=== PATIENT | female | born 1940 | race Caucasian/White ===

== ENCOUNTER 2018-03-02 10:54 | Outpatient (CLI) | payer MEDICARE, SELFPAY ==
--- NOTE | 2018-03-02 11:53 | DI.RAD_ITS ---
SYMPTOMS/DIAGNOSIS: LUMBAGO, M54.5, PERSISTENT LEFT MID-BACK PAIN THORACOLUMBAR SPINE: AP and lateral supine views were performed centered at the thoracolumbar junction. There is a mild biconvex scoliosis. There are severe degenerative disc changes, greatest at T11-12 and the lower lumbar levels. Findings appear to have worsened somewhat when compared with a chest CT of August,. There are prominent endplate osteophytes, greatest in the lumbar levels. Schmorl's nodes are seen at multiple levels. IMPRESSION: Severe degenerative changes of the lower thoracic and lumbar spine , as well as scoliosis.
== END 2018-03-02 11:14 ==
PROVIDERS: PCP Internal Medicine; Visit Provider Internal Medicine
DX: M54.5 Low back pain (principal); M51.35 Other intervertebral disc degeneration, thoracolumbar region
CPT/HCPCS: 72080

== ENCOUNTER 2018-08-24 15:08 | Outpatient (REF) | payer MEDICARE, SELFPAY ==
[2018-08-24 21:10] LABS: ALT 42 U/L (12-78); Anion Gap 11.7 mmol/L (3-11); BUN 9 mg/dL (7-18); CO2 26.3 mmol/L (21.0-32.0); CREATININE 0.85 mg/dL (0.55-1.02); Calcium 8.5 mg/dL (8.5-10.1); Chloride 103 mmol/L (98-107); Glucose 146 mg/dL (70-100); LDL CHOLESTEROL 89 mg/dL (<100); Potassium 3.7 mmol/L (3.5-5.1); Sodium 141 mmol/L (136-145); TSH 4.56 uIU/mL (0.358-3.74)
== END 2018-08-24 15:28 ==
LOC: NCHCN 15:08
PROVIDERS: PCP Internal Medicine; Visit Provider Internal Medicine
DX: I10 Essential (primary) hypertension (principal); I65.21 Occlusion and stenosis of right carotid artery; D12.6 Benign neoplasm of colon, unspecified
CPT/HCPCS: 80048; 83721; 84443; 84460

== ENCOUNTER 2018-08-31 11:28 | Outpatient (REF) | payer MEDICARE, SELFPAY ==
[2018-08-31 20:28] LABS: FREE T4 1.16 ng/dL (0.76-1.46); Glucose 129 mg/dL (70-100); TSH 5.78 uIU/mL (0.358-3.74)
[2018-08-31 21:01] LABS: Hemoglobin A1C 5.5 % (4.5-6.2)
== END 2018-08-31 11:48 ==
LOC: NCHCN 11:28
PROVIDERS: PCP Internal Medicine; Visit Provider Internal Medicine
DX: R73.09 Other abnormal glucose (principal); E04.2 Nontoxic multinodular goiter
CPT/HCPCS: 82947; 83036; 84439; 84443

== ENCOUNTER 2018-09-21 01:16 | Outpatient (REF) | payer MEDICARE, SELFPAY ==
--- NOTE | 2018-09-21 12:15 | DI.MAMMO_ITS ---
SYMPTOMS/DIAGNOSIS: SCREENING, HIGH RISK DUE TO FAMILY HISTORY MAMMOGRAM: Mammograms were interpreted according to the usual protocol including computer analysis with CAD system, tomosynthesis and C view imaging. The breasts are of moderate density with fairly symmetrical distribution of fibroglandular tissue. There are a number of well-circumscribed masses of each breast, no interval change in appearance in comparison with examinations including August 2017. No new mass or clumped microcalcification is identified. CONCLUSION: No specific evidence of malignancy at this time. Routine screening examinations are suggested at yearly intervals due to the family history of breast carcinoma. Category 1, breast density category B. MQSA ASSESSMENT OF FINDINGS: Negative. Category 1. Patient will receive a letter notifying them of these results. BI-RADS category B. There are scattered areas of fibroglandular density.
--- NOTE | 2018-09-21 13:01 | DI.US_ITS ---
SYMPTOMS/DIAGNOSIS: F/U CAROTID STENOSIS, I65.29 BILATERAL DUPLEX CAROTID ULTRASOUND: Duplex evaluation of the carotid circulation was performed according to the usual protocol. There is moderate visible atheromatous plaque in the carotid bifurcations and carotid bulbs bilaterally. Flow velocities on the left are within normal limits in the common internal and external carotid arteries. On the right, there is normal flow velocity in common carotid artery. Flow velocity elevation in proximal right internal carotid artery with maximal flow velocity of 226 cm per second is consistent with 50-60% luminal diameter stenosis at this site. There is bilateral antegrade vertebral flow. CONCLUSION: Findings consistent with a stenosis of 50-60% of the luminal diameter of the proximal right internal carotid artery. Flow velocity elevation extends into the mid right ICA.
== END 2018-09-21 01:36 ==
LOC: DI 01:16
PROVIDERS: PCP Internal Medicine; Visit Provider Internal Medicine
DX: I65.21 Occlusion and stenosis of right carotid artery (principal); Z12.31 Encounter for screening mammogram for malignant neoplasm of breast; Z80.3 Family history of malignant neoplasm of breast
CPT/HCPCS: 77063; 77067; 93880

== ENCOUNTER 2019-02-20 15:04 | Outpatient (REF) | payer MEDICARE, SELFPAY ==
[2019-02-20 20:07] LABS: FREE T4 1.39 ng/dL (0.76-1.46); TSH 0.24 uIU/mL (0.36-3.74)
== END 2019-02-20 15:24 ==
LOC: NCHCN 15:04
PROVIDERS: PCP Internal Medicine; Visit Provider Internal Medicine
DX: E04.2 Nontoxic multinodular goiter (principal); I65.21 Occlusion and stenosis of right carotid artery; I73.9 Peripheral vascular disease, unspecified; D12.6 Benign neoplasm of colon, unspecified
CPT/HCPCS: 84439; 84443

== ENCOUNTER 2019-12-13 16:16 | Outpatient (REF) | payer MEDICARE, SELFPAY ==
[2019-12-13 20:34] LABS: HGB 14.6 g/dL (11.2-15.7); MCH 36.7 pg (27.0-33.0); MCHC 34.8 % (32.0-36.0); MCV 105.5 fL (80-95); MPV 11.3 fL (8.0-11.0); Platelet Count 183 10^3/uL (130-400); RBC 3.98 10^6/uL (3.93-5.22); RDW-SD 47.1 fL
[2019-12-13 21:10] LABS: ALT 35 U/L (14-59); Anion Gap 6.7 mmol/L (3-11); BUN 9 mg/dL (7-18); CO2 28.3 mmol/L (21.0-32.0); CREATININE 0.75 mg/dL (0.55-1.02); Calcium 8.6 mg/dL (8.5-10.1); Chloride 103 mmol/L (98-107); Glucose 105 mg/dL (74-106); LDL CHOLESTEROL 95 mg/dL (<100); Potassium 3.9 mmol/L (3.5-5.1); Sodium 138 mmol/L (136-145); TSH 2.48 uIU/mL (0.36-3.74)
== END 2019-12-13 16:36 ==
LOC: LBN 16:16
PROVIDERS: PCP Internal Medicine; Visit Provider Internal Medicine
DX: I10 Essential (primary) hypertension (principal); E89.0 Postprocedural hypothyroidism; R73.09 Other abnormal glucose
CPT/HCPCS: 80048; 83721; 85027; 84443; 84460

== ENCOUNTER 2019-12-15 15:03 | Outpatient (REF) | payer MEDICARE, SELFPAY ==
[2019-12-15 21:50] LABS: Folate 9.8 ng/mL (8.6-20.0); Vitamin B12 141 pg/mL (193-986)
[2019-12-20 10:21] LABS: Methylmalonic Acid 0.26 nmol/mL (<=0.40)
== END 2019-12-15 15:23 ==
LOC: NCHCN 15:03
PROVIDERS: PCP Internal Medicine; Visit Provider Internal Medicine
DX: R71.8 Other abnormality of red blood cells (principal)
CPT/HCPCS: 80186; 82607; 82746

== ENCOUNTER 2020-01-01 00:37 | Outpatient (CLI) | payer MEDICARE, SELFPAY ==
--- NOTE | 2020-01-01 | DI.MAMMO_ITS ---
EXAM: MG MAMMO SCREENING CLINICAL HISTORY: SCREENING, [facility],Z00.00 TECHNIQUE: Mammograms were interpreted according to the usual protocol including computer analysis w [employer] system, tomosynthesis and C-view imaging. COMPARISON: FINDINGS: The breasts are of moderate density with fairly symmetrical distribution of fibroglandular tissue. M ultiple focal areas of asymmetric density are seen bilaterally, however the findings appear unchanged comparison with multiple previous examinations including August 2018. No new mass or clumped microcal cification is seen. IMPRESSION: No specific evidence of malignancy at this time. Routine screening examinations are suggested at yea rly intervals due to the family history of breast carcinoma. BI-RADS Category 1 - Negative Breast Density - Category B - Scattered areas of fibroglandular density
== END 2020-01-01 00:57 ==
PROVIDERS: PCP Internal Medicine; Visit Provider Internal Medicine
DX: Z12.31 Encounter for screening mammogram for malignant neoplasm of breast (principal); Z00.00 Encounter for general adult medical examination without abnormal findings
CPT/HCPCS: 77063; 77067

== ENCOUNTER 2020-05-31 18:51 | Outpatient (REF) | payer MEDICARE, SELFPAY ==
[2020-06-03 12:51] LABS: COVID-19 RT-PCR UVMMC Result Negative (Negative)
== END 2020-05-31 18:52 | disposition home or self-care (01) ==
LOC: NCHCN 18:51
PROVIDERS: PCP Internal Medicine; Visit Provider Internal Medicine
DX: Z20.822 Contact with and (suspected) exposure to COVID-19 (principal)
CPT/HCPCS: U0003

== ENCOUNTER 2021-04-10 18:56 | Outpatient (REF) | payer MEDICARE, SELFPAY ==
[2021-04-10 19:20] LABS: HCT 41.5 % (36.0-46.0); HGB 14.3 g/dL (11.2-15.7); MCH 35.9 pg (27.0-33.0); MCHC 34.5 % (32.0-36.0); MCV 104.3 fL (80-95); MPV 11.5 fL (8.0-11.0); Platelet Count 185 10^3/uL (130-400); RBC 3.98 10^6/uL (3.93-5.22); RDW 12.2 % (11.7-14.6); RDW-SD 47.1 fL; WBC 5.76 10^3/uL (4.4-10.8)
[2021-04-10 19:44] LABS: Anion Gap 10.9 mmol/L (3-11); BUN 12 mg/dL (7-18); CO2 26.1 mmol/L (21.0-32.0); CREATININE 0.8 mg/dL (0.55-1.02); Calcium 8.6 mg/dL (8.5-10.1); Chloride 103 mmol/L (98-107); Glucose 123 mg/dL (74-106); Potassium 3.7 mmol/L (3.5-5.1); Sodium 140 mmol/L (136-145); TSH 3.64 uIU/mL (0.36-3.74)
== END 2021-04-10 18:57 | disposition home or self-care (01) ==
LOC: NCHCN 18:56
PROVIDERS: PCP Internal Medicine; Visit Provider Internal Medicine
DX: E89.0 Postprocedural hypothyroidism (principal); I10 Essential (primary) hypertension; K58.9 Irritable bowel syndrome, unspecified
CPT/HCPCS: 80048; 85027; 84443

== ENCOUNTER 2021-05-15 00:58 | Outpatient (CLI) | payer MEDICARE, SELFPAY ==
--- NOTE | 2021-05-15 | DI.US_ITS ---
Exam(s) US CAROTID EXAM: US CAROTID CLINICAL HISTORY: BILAT CAROTID STENOSIS,I65.23. TECHNIQUE: Ultrasound carotids performed using grayscale, color-flow, and spectral Doppler imaging. COMPARISON: US US carotid from 09/21/2018 FINDINGS: RIGHT CAROTID ARTERY: Plaque: There is calcific plaque seen in the carotid bulb and proximal and mid internal carotid arter ies. Velocity elevation: See below. LEFT CAROTID ARTERY: Plaque: Calcific plaque is seen in the carotid bulb, common carotid artery and proximal internal lawrence tid artery. Velocity elevation: None. VERTEBRAL ARTERIES: Antegrade flow. Measurements: R Bulb: 266.1cm/s PS / 39cm/s ED R CCA: 74.6cm/s PS / 11.6cm/s ED R ECA: 153.5cm/s PS / 14.7cm/s ED R ICA Prox: 374.8cm/s PS /69.4cm/s ED R ICA Mid: 298.5cm/s PS / 48.6cm/s ED R ICA Distal: No flow is detected. R Vert: 55.9cm/s PS / 10.3cm/s ED R SVR: 5.02 R DVR: 5.98 L Bulb: 98.3cm/s PS /15.4cm/s ED L CCA: 90cm/s PS / 17.4cm/s ED L ECA: 137.2cm/s PS /9.1cm/s ED L ICA Prox:79.3cm/s PS / 13.2cm/s ED L ICA Mid: 91.7cm/sPS / 18.2cm/s ED L ICA Distal: 104.1cm/s PS / 24.8cm/s ED L Vert: 44cm/s PS / 8.1cm/s ED L SVR: 1.16 L DVR: 1.43 IMPRESSION: 1. No evidence of hemodynamically significant stenosis on the left. 2. Flow was not detected in the distal right ICA. Findings are suspicious for total occlusion. Sign ificant velocity elevation is seen in the proximal mid ICA consistent with greater than 70 percent oc clusion. Criteria for Carotid Stenosis: Normal: ICA PSV <125 cm/s no plaque or intimal thickening is visible. <50% stenosis: ICA PSV <125 cm/s and plaque or intimal thickening is visible. 50-69% stenosis: ICA PSV is 125-250 cm/s and plaque is visible. >70% stenosis to near occlusion: ICA PSV >250 cm/s with visible plaque and luminal narrowing. DATA REPOSITORY:
--- NOTE | 2021-05-15 13:00 | DI.MAMMO_ITS ---
Exam(s) MAMMO SCREENING EXAM: MAMMO SCREENING CLINICAL HISTORY: SCREENING, [facility], Z00.00 TECHNIQUE: Bilateral full field digital CC and MLO mammographic images were obtained with 3D tomosyn thesis and utilizing computer aided detection (CAD). COMPARISON: Available for comparison. FINDINGS: There is patient motion artifact on the right MLO view which should be repeated. Masses/Architectural Distortion: Stable bilateral breast nodules are present. Microcalcifications: No suspicious pleomorphic-type are seen. Skin Thickening/Nipple Retraction: None. IMPRESSION: 1. No significant interval change with no specific features of malignancy noted. 2. A repeat right MLO view due to patient motion artifact should be obtained. BI-RADS Category 0 - Assessment Incomplete: Need additional imaging evaluation Breast Density - Category B - Scattered areas of fibroglandular density Breast density category C or D implies that the patient has dense breast tissue. Dense breast tissue is very common and is not abnormal but dense breast tissue can make it harder to find cancer on a ma mmogram. Also, dense breast tissue may increase their breast cancer risk. This information about the result of the mammogram report was provided to the patient to raise their awareness. Use this report when you speak with the patient about their risks for breast cancer, which includes their family hist ory. At that time, you may recommend for more screening tests (Ultrasound or MRI) as they might be us eful based on their risk. A negative radiographic report should not delay biopsy if a dominant or clinically suspicious mass is present. Up to ten percent of cancers are not identified on mammography. A negative report may reinforce clinical impression. Adenosis and dense breasts may obscure an underlying neoplasm. False positive reports average 6 to 10%. Patient will receive a letter notifying them of these results.
== END 2021-05-15 01:18 ==
PROVIDERS: PCP Internal Medicine; Visit Provider Internal Medicine
DX: Z12.31 Encounter for screening mammogram for malignant neoplasm of breast (principal); R92.8 Other abnormal and inconclusive findings on diagnostic imaging of breast; I65.21 Occlusion and stenosis of right carotid artery
CPT/HCPCS: 77063; 77067; 93880

== ENCOUNTER 2021-05-15 14:57 | Outpatient (CLI) | payer MEDICARE, SELFPAY ==
--- NOTE | 2021-05-15 | DI.DEXA_ITS ---
Exam(s) XR DEXA BONE DENSITY W/WO PATO EXAM: XR DEXA BONE DENSITY W/WO PATO CLINICAL HISTORY: SCREENING FOR OSTEOPOROSIS IN POSTMENOPAUSAL WOMAN, Z78.0 TECHNIQUE: COMPARISON: No exams were available for comparison FINDINGS: Lateral Spine Image: Unremarkable. No compression deformities identified. Left hip: Total T-Score: -1.3 Total Z-Score: 0.7 T- and Z-scores: Findings consistent with osteopenia. Lumbar Spine: Total T-Score: 1.2 Total Z-Score: 3.8 T- and Z-scores: Within normal limits. IMPRESSION: No evidence of osteoporosis.
== END 2021-05-15 15:17 ==
PROVIDERS: PCP Internal Medicine; Visit Provider Internal Medicine Gastroenterology
DX: Z78.0 Asymptomatic menopausal state (principal); Z13.820 Encounter for screening for osteoporosis; M85.88 Other specified disorders of bone density and structure, other site
CPT/HCPCS: 77080

== ENCOUNTER 2021-05-23 02:26 | Outpatient (CLI) | payer MEDICARE, SELFPAY ==
--- NOTE | 2021-05-23 | DI.MAMMO_ITS ---
Exam(s) MAMMO SCREEN CALL BACK UNI EXAM: MAMMO SCREEN CALL BACK UNI CLINICAL HISTORY: REPEAT VIEW FOR MOTION,F/U 05/15 TECHNIQUE: Right MLO view including computer analysis with CAD system, tomosynthesis and C-view imag ing. COMPARISON: [facility] MAMMO SCREENING from 05/15/2021 FINDINGS: Patient return for repeat imaging due to motion on the initial view. Stable nodules are seen in the upper and lower portions of the right breast. The breasts are composed of scattered fibroglandular densities, Breast Density category B. No suspicious masses or suspicious microcalcifications are seen. No skin thickening or abnormal axillary lymph nodes are seen. There has been no significant change from prior exams. IMPRESSION: BI-RADS Cat 2 - Benign Findings Yearly screening mammography is recommended. Breast Density - Category B, scattered fibroglandular densities. A negative radiographic report should not delay biopsy if a dominant or clinically suspicious mass is present. Up to ten percent of cancers are not identified on mammography. A negative report may reinforce clinical impression. Adenosis and dense breasts may obscure an underlying neoplasm. False positive reports average 6 to 10%. Patient will receive a letter notifying them of these results.
== END 2021-05-23 02:46 ==
PROVIDERS: PCP Internal Medicine; Visit Provider Internal Medicine
DX: Z12.31 Encounter for screening mammogram for malignant neoplasm of breast (principal); R92.8 Other abnormal and inconclusive findings on diagnostic imaging of breast; N64.59 Other signs and symptoms in breast
CPT/HCPCS: 77063; 77067

== ENCOUNTER 2021-12-24 15:17 | Outpatient (REF) | payer MEDICARE, SELFPAY ==
[2021-12-24 20:55] LABS: Anion Gap 7.7 mmol/L (3-11); BUN 8 mg/dL (7-18); CO2 28.3 mmol/L (21.0-32.0); CREATININE 0.8 mg/dL (0.55-1.02); Calcium 8.8 mg/dL (8.5-10.1); Calculated LDL 67 mg/dL (<100); Chloride 104 mmol/L (98-107); Cholesterol 154 mg/dL (<200); Glucose 128 mg/dL (74-106); HDL Cholesterol 60 mg/dL (40-60); Potassium 3.6 mmol/L (3.5-5.1); Sodium 140 mmol/L (136-145); Triglyceride 139 mg/dL (<150)
== END 2021-12-24 15:18 | disposition home or self-care (01) ==
LOC: NCHCN 15:17
PROVIDERS: PCP Internal Medicine; Visit Provider Internal Medicine
DX: E89.0 Postprocedural hypothyroidism (principal); I10 Essential (primary) hypertension; E78.5 Hyperlipidemia, unspecified; I65.21 Occlusion and stenosis of right carotid artery
CPT/HCPCS: 80048; 80061; 84443

== ENCOUNTER 2022-08-13 09:50 | Outpatient (CLI) | payer MEDICARE, SELFPAY ==
--- NOTE | 2022-08-13 | DI.RAD_ITS ---
Exam(s) XR KNEE LT 3V AP,LAT,MARJORIE EXAM: XR KNEE LT 3V AP,LAT,MARJORIE CLINICAL HISTORY: LEFT KNEE JOINT PAIN M25.562. TECHNIQUE: 2D digital imaging was performed of the left knee. Three images were obtained. AP, late ral and PA tunnel views were obtained. COMPARISON: No exams were available for comparison FINDINGS: BONES: No acute fracture is present. No bony destructive lesion is seen. JOINTS: The knee is normally aligned. There is a small joint effusion. There are small spurs of the posterior patella. There is chondrocalcinosis seen in the femoral tibial joint. SOFT TISSUE: Atherosclerosis is present. IMPRESSION: 1. Mild degenerative changes of the knee. 2. Small joint effusion. 3. 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 DATA REPOSITORY: RADIATION DOSE DELIVERED:
== END 2022-08-13 10:10 ==
LOC: DI 09:50
PROVIDERS: PCP Internal Medicine; Visit Provider Nurse Practitioner Family
DX: M17.12 Unilateral primary osteoarthritis, left knee (principal)
CPT/HCPCS: 73562

== ENCOUNTER 2022-08-17 16:53 | Outpatient (REF) | payer MEDICARE, SELFPAY ==
[2022-08-17 19:11] LABS: Iron 122 ug/dL (50-170)
[2022-08-17 19:13] LABS: Alkaline Phosphatase 110 U/L (46-116); Calcium 8.7 mg/dL (8.5-10.1); Magnesium 1.9 mg/dL (1.8-2.4); PHOSPHORUS 4.6 mg/dL (2.6-4.7)
[2022-08-18 17:59] LABS: Parathyroid Hormone,Intact 58 pg/mL (19-88)
[2022-08-19 09:19] LABS: Transferrin 188 mg/dL (201-352)
== END 2022-08-17 16:54 | disposition home or self-care (01) ==
LOC: NCHCN 16:53
PROVIDERS: PCP Internal Medicine; Visit Provider Nurse Practitioner Family
DX: M11.20 Other chondrocalcinosis, unspecified site (principal)
CPT/HCPCS: 82310; 83540; 83735; 83970; 84075; 84100; 84466

== ENCOUNTER 2022-08-22 16:19 | Inpatient (IN) | payer MEDICARE, SELFPAY ==
[2022-08-22 16:38] VITALS: BP 182/78; PULSE 73; RESP 18; TEMP 36.5; O2SAT 99
--- NOTE | 2022-08-22 18:00 | DI.CT_ITS ---
Exam(s) CT ABDOMEN PELVIS W EXAM: CT ABDOMEN PELVIS W CLINICAL HISTORY: abd pain. TECHNIQUE: Imaging Protocol: Axial computed tomography images with coronal and sagittal reformatted images were created and reviewed CONTRAST MATERIAL: Intravenous: Omnipaque-350 100cc Oral: None COMPARISON: No exams were available for comparison FINDINGS: VISUALIZED LUNG BASES: No nodules nor pleural effusions evident. ABDOMEN: LIVER: There is a E subcapsular lesion in the right hepatic lobe measuring approximately 4 x 3 cm. P robably hemangioma. No other focal hepatic findings nor dilatation of intrahepatic ducts. No dilate d intrahepatic ducts. GALLBLADDER/BILIARY: Gallbladder is not seen and presumed to be surgically absent. CBD diameter is s lightly enlarged commensurate with patient's post cholecystectomy status and advanced age. CBD diame ter at the pancreatic head level is 12 mm. There is a finding measuring 2.5 cm wide by 1.5 cm AP by 2.2 cm cephalocaudal behind the distal stoma ch. May represent an enlarged lymph node. PANCREAS: No evidence of pancreatic mass nor dilatation of the pancreatic duct. SPLEEN: Spleen size upper normal. Multiple subtle hypodensities are noted in the spleen, probably he mangiomas. The splenic and portal veins are patent. ADRENALS: There are no significant adrenal masses. KIDNEYS:No cysts evident. No solid renal masses. No calculi nor hydronephrosis.. ABDOMINAL AORTA: Calcified but not enlarged. Iliac arteries are also calcified but not enlarged. LYMPH NODES:There is no retroperitoneal nor paraaortic adenopathy. ABDOMINAL WALL: No evidence of significant anterior abdominal wall nor inguinal hernia. GI: The colon is dilated and fluid-filled. Also fluid-filled mid and distal small bowel loops are no jonas. Diameter of the cecum is 7 cm. Diameter of the ascending colon is 6 cm. Diameter of the trans verse colon is 3.5 cm. Diameter of the descending-left colon is 3.5 cm. There is sigmoid diverticul osis but no obvious acute diverticulitis. Small amount of free fluid. Small bowel loops are also fluid-filled distally and upper normal diameters. There is diverted ticke t low cysts in the sigmoid and rectum sigmoid but no evidence of obvious diverticulitis focus. PELVIS: GI: No evidence of appendicitis.No evidence of sigmoid diverticulitis. LYMPH NODES: There is no intrapelvic nor inguinal adenopathy. REPRODUCTIVE: Uterus size normal. Finding in the high left adnexa is probably slightly prominent ova ry. The right ovary is not identified as a separate structure URINARY BLADDER: No calculi nor obvious masses evident OSSEOUS: No compression fractures. Multilevel chronic degenerative disc disease. Most evident at T1 1-T12 level. Also Schmorl's node invagination at superior endplate of T11. Also moderate degenerati ve anterolisthesis L4 upon L5. IMPRESSION: 1. Main finding here is dilatation of most of the colon from the cecum to the sigmoid which is fluid- filled with the exception of some fecal material in the sigmoid where there are multiple diverticula but no obvious acute diverticulitis. There also fluid filled mid-distal small bowel loops. Findings are most probably related to enteritis pattern. These fluid-filled large bowel loops are more fluid -filled than they are edematous. There is, however, small amount of free fluid. There is no free ai r. 2. Abdominal aorta is atherosclerotic. There is no occlusion of the superior mesenteric artery nor o f the inferior mesenteric artery. There are no large me entering mesenteric vessels. 3. There is a subcapsular hypodense lesion in the liver which exhibits enhancement characteristics pr obably that of a cavernous hemangioma. Measures approximately 4 x 3 cm. 4. Gallbladder appears to be surgically absent. There is mild dilatation of biliary tree. RADIATION DOSE DELIVERED: 1,069.36mGy.cm Total DLP DATA REPOSITORY: All CT scans at this facility are submitted to the National Radiology Data Registry (NRDR) Dose Index Registry (DIR) with the [employer] ([employer]). RADIATION OPTIMIZATION: All CT scans at this facility use at least one of these dose optimization te chniques: automated exposure control; mA and/or kV adjustment per patient size (includes targeted exa ms where dose is matched to clinical indication); or iterative reconstruction.
[2022-08-22] MEDS: ACETAMINOPHEN 1,000 MG/100 ML BTL 400 MG IVPB (18:02)
[2022-08-22 18:03] LABS: Lactate 2.3 mmol/L (0.6-1.4)
[2022-08-22] MEDS: Normal Saline 1,000 ML 1000 ML IV (18:03)
[2022-08-22] MEDS: Prochlorperazine 10 MG/2 ML VIAL IVP (18:03)
[2022-08-22 18:06] LABS: Abs Immature Grans 0.05 10^3/uL (0.0-0.06); Absolute Lymphocyte Count 0.83 10^3/uL (1.2-3.4); Absolute Monocyte Count 1.43 10^3/uL (0.1-0.8); Basophils % 0.2; HCT 44.9 % (36.0-46.0); HGB 16.1 g/dL (11.2-15.7); Immature Grans % 0.3; Lymphocytes % 5.2; MCH 36.6 pg (27.0-33.0); MCHC 35.9 % (32.0-36.0); MCV 102 fL (80-95); Monocytes % 8.9; Neutrophils % 85.4; Platelet Count 240 10^3/uL (130-400); RDW 12.5 % (11.7-14.6); RDW-SD 47.4 fL; WBC 16.04 10^3/uL (4.4-10.8)
[2022-08-22 18:07] LABS: Absolute Basophil Count 0.03 10^3/uL (0.0-0.2)
[2022-08-22 18:17] LABS: ALT 26 U/L (14-59); AST 29 U/L (15-37); Albumin 3.9 g/dL (3.4-5.0); Alkaline Phosphatase 146 U/L (46-116); Anion Gap 7.1 mmol/L (3-11); BUN 15 mg/dL (7-18); Bilirubin, Total 1.4 mg/dL (0.2-1.0); CO2 28.9 mmol/L (21.0-32.0); CREATININE 0.9 mg/dL (0.55-1.02); Calcium 9.7 mg/dL (8.5-10.1); Chloride 99 mmol/L (98-107); Estimated GFR 65.03 (mL/min/1.73m2); Glucose 146 mg/dL (74-106); Potassium 3.4 mmol/L (3.5-5.1); Sodium 135 mmol/L (136-145); Total Protein 6.7 g/dL (6.4-8.2)
[2022-08-22] MEDS: HYDROmorphone 2 MG/ML SYR 0.5 MG IVP (18:20)
[2022-08-22] MEDS: Omnipaque 350 MG/ML 100 ML BTL IJ (18:20)
[2022-08-22] MEDS: Normal Saline - Diluent 50 ML VIAL IJ (18:23)
--- NOTE | 2022-08-22 19:01 | ED.GENADUL_ITS ---
Discharge Plan Disposition Patient Disposition: Admit to [facility] Condition: Stable Discharge Details Clinical Impression: Small bowel obstruction Admit Date/Time: 08/22/22 19:15 Admit Provider: Mercedez Burks Attending Provider: Mercedez Bruks Primary Care Provider: Ravindra Ordoñez ED Provider: Adele Gonzalez Discharge Data Discharge Date/Time-TO BE ENTERED AT DEPARTURE: 08/22/22 19:51 Medical Decision Making Patient presents with significant abdominal pain nausea vomiting distention and reports of constipation x3 days not responsive to laxatives. Will obtain IV access check CBC CMP lactic acid differentials most likely include small bowel obstruction versus mesenteric ischemia. Will give 1 L of normal saline antiemetic Compazine 10 mg IV push and acetaminophen 1000 mg IV piggyback. Will obtain CT of the abdomen and pelvis. Pain continues to be significant after receiving medications so we will give Dilaudid 0.[address] findings are discussed with radiologist. Then further discussed with Dr. Burks general surgery who will admit for small bowel obstruction. NG tube to be placed. Lab Data Lab results reviewed: Yes I reviewed the patient's lab results. Labs: Laboratory Results - last 24 hr WBC 16.04 10^3/uL (4.4-10.8) H 08/22/22 17:50 RBC 4.40 10^6/uL (3.93-5.22) 08/22/22 17:50 Hgb 16.1 g/dL (11.2-15.7) H 08/22/22 17:50 Hct 44.9 % (36.0-46.0) 08/22/22 17:50 MCV 102 fL (80-95) H 08/22/22 17:50 MCH 36.6 pg (27.0-33.0) H 08/22/22 17:50 MCHC 35.9 % (32.0-36.0) 08/22/22 17:50 RDW 12.5 % (11.7-14.6) 08/22/22 17:50 Plt Count 240 10^3/uL (130-400) 08/22/22 17:50 MPV 11.0 fL (8.0-11.0) 08/22/22 17:50 Immature Gran % 0.3 08/22/22 17:50 Neutrophils % 85.4 08/22/22 17:50 Lymphocytes % 5.2 08/22/22 17:50 Monocytes % 8.9 08/22/22 17:50 Eosinophils % 0.0 08/22/22 17:50 Basophils % 0.2 08/22/22 17:50 Nucleated RBC % 0.0 % (0.0-0.3) 08/22/22 17:50 Absolute Neutrophils 13.70 10^3/uL (1.2-6.7) H 08/22/22 17:50 Absolute Lymphocytes 0.83 10^3/uL (1.2-3.4) L 08/22/22 17:50 Absolute Monocytes 1.43 10^3/uL (0.1-0.8) H 08/22/22 17:50 Absolute Eosinophils 0.00 10^3/uL (0.0-0.7) 08/22/22 17:50 Absolute Basophils 0.03 10^3/uL (0.0-0.2) 08/22/22 17:50 VBG Lactate 2.3 mmol/L (0.6-1.4) H* 08/22/22 17:50 Sodium 135 mmol/L (136-145) L 08/22/22 17:50 Potassium 3.4 mmol/L (3.5-5.1) L 08/22/22 17:50 Chloride 99 mmol/L (98-107) 08/22/22 17:50 Carbon Dioxide 28.9 mmol/L (21.0-32.0) 08/22/22 17:50 Anion Gap 7.1 mmol/L (3-11) 08/22/22 17:50 BUN 15 mg/dL (7-18) 08/22/22 17:50 Creatinine 0.9 mg/dL (0.55-1.02) 08/22/22 17:50 Est GFR (CKD-EPI 2020) 65.03 (mL/min/1.73m2) 08/22/22 17:50 Glucose 146 mg/dL (74-106) H 08/22/22 17:50 Calcium 9.7 mg/dL (8.5-10.1) 08/22/22 17:50 Magnesium 3.0 mg/dL (1.8-2.4) H 08/22/22 17:50 Total Bilirubin 1.4 mg/dL (0.2-1.0) H 08/22/22 17:50 AST 29 U/L (15-37) 08/22/22 17:50 ALT 26 U/L (14-59) 08/22/22 17:50 Alkaline Phosphatase 146 U/L (46-116) H 08/22/22 17:50 Troponin I Cancelled 08/22/22 20:42 Total Protein 6.7 g/dL (6.4-8.2) 08/22/22 17:50 Albumin 3.9 g/dL (3.4-5.0) 08/22/22 17:50 HPI General Mode of arrival: ambulatory . Date/Time Provider Initiated Documentation: 08/22/22 16:22 . Limitations to Documentation: no limitations . Information obtained by: patient . HPI Narrative: 81-year-old female patient who has been reporting constipation over the past several days has been taken vosh-vsk-vsodhxl bowel medication including oral and rectal Dulcolax with no results. She presents with significant reports of abdominal pain nausea vomiting and abdominal distention. She denies any history of bowel obstruction. She denies any fever or chills. She has not anticoagulated, does take daily aspirin. Related Data Home Medications Medication Instructions Recorded Confirmed Anti-Diarrhea 2 mg tablet 2 mg PO PRN PRN 03/20/13 03/27/13 (loperamide) Cardizem CD 120 mg 240 mg PO DAILY 03/20/13 08/22/22 capsule,extended release (diltiazem HCl) ESSENTIAL One Daily (multivitamin) 1 ea PO DAILY 03/20/13 08/22/22 Prilosec OTC 20 mg tablet,delayed 20 mg PO DAILY 03/20/13 03/27/13 release (omeprazole magnesium) aspirin 325 mg tablet 325 mg PO DAILY 03/20/13 08/22/22 atenolol 50 mg tablet 50 mg PO DAILY 03/20/13 08/22/22 calcium carbonate 500 mg calcium 500 mg PO DAILY 03/20/13 08/22/22 (1,250 mg) chewable tablet levothyroxine 125 mcg tablet 125 mcg PO DAILY 03/20/13 08/22/22 lorazepam 1 mg tablet 1 mg PO PRN PRN 03/20/13 03/27/13 Allergies Allergy/AdvReac Type Severity Reaction Status Date / Time Vurylvx-RRZ-DpL Reductase Allergy Unknown Unverified 03/14/14 14:26 Inhibitor [Gaeetrw-Tmg-Hyi Reductase Inhibitor] Sulfa (Sulfonamide Allergy Unknown Unverified 03/14/14 14:26 Antibiotics) General Stated Complaint: Abd Prob PHOEBE: 3 Review of Systems All systems reviewed & are unremarkable except as noted in HPI and below PFSH All Active Problems (Updated 08/22/22 @ 19:23 by Mercedez Burks DO) Hypothyroid (Chronic) HTN (hypertension) (Chronic) Chronic GERD (Acute) Bowel obstruction (Acute) Surgical History (Updated 08/22/22 @ 19:23 by Mercedez Burks DO) S/P cholecystectomy Social History Smoking/Tobacco Use Status: Former Tobacco Use Smoking risk assessment performed?: Yes Drug use: Never Substance use type: does not use Exam Const General: cooperative and no acute distress Nutritional Appearance: average body habitus Orientation: alert, awake and oriented x3 HENMT Head: normal to inspection, normocephalic and atraumatic Mouth: moist mucous membranes abnormal (dry) Chest Chest: normal inspection of the chest Resp Effort & Inspection: normal respiratory effort Cardio Rate: regular rate Rhythm: regular rhythm GI Inspection: distended Palpation: soft, not firm, no guarding, not rigid and tender Percussion: tympanic to percussion Auscultation: hyperactive bowel sounds Skin General skin exam: no rashes or lesions noted Neuro General: patient alert, patient awake and patient oriented x3 Cognition: normal cognition Course Vital Signs Vital signs: Vital Signs Temperature 36.5 C 08/22/22 16:38 Pulse 73 08/22/22 16:38 Respiratory Rate 18 08/22/22 16:38 Blood Pressure 182/78 H 08/22/22 16:38 Pulse Oximetry 99 08/22/22 16:38 Temperature 36.5 C 08/22/22 16:38 Temperature Source Temporal Artery Scan 08/22/22 16:38 Pulse 73 08/22/22 16:38 Respiratory Rate 18 08/22/22 16:38 Respiratory Effort Normal, Non-Labored 08/22/22 16:50 Blood Pressure 182/78 H 08/22/22 16:38 Blood Pressure Position Supine 08/22/22 16:38 Pulse Oximetry 99 08/22/22 16:38 Oxygen Delivery Method Room Air 08/22/22 16:38 Oxygen Flow Rate 0 08/22/22 16:38 Lab/Test Results Lab/Test Results: Laboratory Tests Range/Units 08/22/22 08/22/22 08/22/22 17:42 17:50 17:50 WBC (4.4-10.8) 10^3/uL 16.04 H RBC (3.93-5.22) 10^6/uL 4.40 Hgb (11.2-15.7) g/dL 16.1 H Hct (36.0-46.0) % 44.9 MCV (80-95) fL 102 H MCH (27.0-33.0) pg 36.6 H MCHC (32.0-36.0) % 35.9 RDW (11.7-14.6) % 12.5 Plt Count (130-400) 10^3/uL 240 MPV (8.0-11.0) fL 11.0 Immature Gran % 0.3 Neutrophils % 85.4 Lymphocytes % 5.2 Monocytes % 8.9 Eosinophils % 0.0 Basophils % 0.2 Nucleated RBC % (0.0-0.3) % 0.0 Absolute Neutrophils (1.2-6.7) 10^3/uL 13.70 H Absolute Lymphocytes (1.2-3.4) 10^3/uL 0.83 L Absolute Monocytes (0.1-0.8) 10^3/uL 1.43 H Absolute Eosinophils (0.0-0.7) 10^3/uL 0.00 Absolute Basophils (0.0-0.2) 10^3/uL 0.03 VBG Lactate (0.6-1.4) mmol/L Sodium (136-145) mmol/L 135 L Potassium (3.5-5.1) mmol/L 3.4 L Chloride (98-107) mmol/L 99 Carbon Dioxide (21.0-32.0) mmol/L 28.9 Anion Gap (3-11) mmol/L 7.1 BUN (7-18) mg/dL 15 Creatinine (0.55-1.02) mg/dL 0.9 Est GFR (CKD-EPI 2020) (mL/min/1.73m2) 65.03 Glucose (74-106) mg/dL 146 H Calcium (8.5-10.1) mg/dL 9.7 Magnesium (1.8-2.4) mg/dL 3.0 H Total Bilirubin (0.2-1.0) mg/dL 1.4 H AST (15-37) U/L 29 ALT (14-59) U/L 26 Alkaline Phosphatase (46-116) U/L 146 H Troponin I Cancelled Total Protein (6.4-8.2) g/dL 6.7 Albumin (3.4-5.0) g/dL 3.9 Range/Units 08/22/22 08/22/22 17:50 20:42 WBC (4.4-10.8) 10^3/uL RBC (3.93-5.22) 10^6/uL Hgb (11.2-15.7) g/dL Hct (36.0-46.0) % MCV (80-95) fL MCH (27.0-33.0) pg MCHC (32.0-36.0) % RDW (11.7-14.6) % Plt Count (130-400) 10^3/uL MPV (8.0-11.0) fL Immature Gran % Neutrophils % Lymphocytes % Monocytes % Eosinophils % Basophils % Nucleated RBC % (0.0-0.3) % Absolute Neutrophils (1.2-6.7) 10^3/uL Absolute Lymphocytes (1.2-3.4) 10^3/uL Absolute Monocytes (0.1-0.8) 10^3/uL Absolute Eosinophils (0.0-0.7) 10^3/uL Absolute Basophils (0.0-0.2) 10^3/uL VBG Lactate (0.6-1.4) mmol/L 2.3 H* Sodium (136-145) mmol/L Potassium (3.5-5.1) mmol/L Chloride (98-107) mmol/L Carbon Dioxide (21.0-32.0) mmol/L Anion Gap (3-11) mmol/L BUN (7-18) mg/dL Creatinine (0.55-1.02) mg/dL Est GFR (CKD-EPI 2020) (mL/min/1.73m2) Glucose (74-106) mg/dL Calcium (8.5-10.1) mg/dL Magnesium (1.8-2.4) mg/dL Total Bilirubin (0.2-1.0) mg/dL AST (15-37) U/L ALT (14-59) U/L Alkaline Phosphatase (46-116) U/L Troponin I Cancelled Total Protein (6.4-8.2) g/dL Albumin (3.4-5.0) g/dL
--- NOTE | 2022-08-22 19:22 | HPE_ITS ---
Date of service: 08/22/22 Time of Service: 19:22 Assessment and Plan Assessment and plan (1) Obstipation: Status: Acute Assessment and plan: - At this time it appears that she has an impaction with a significant amount of liquid stool behind it. She does not have any peritoneal signs or signs of an acute abdomen. There is no signs of any abdominal emergency on CT or any infections. -It is not clear why someone who has chronic diarrhea has simply developed an impaction. She has been taking Dulcolax at home without results. -Night we will do a Dulcolax suppository. If this does not have any results after 2 hours and we will proceed to enema. We will plan on doing stool cultures and C. difficile. -Continue supportive care including fluids and antiemetics if there is a think she is quite dehydrated still from vomiting. Repeat labs in a.m. Further recommendations to follow (2) Chronic GERD: Status: Acute (3) HTN (hypertension): Status: Chronic (4) Hypothyroid: Status: Chronic (5) S/P cholecystectomy: (6) Diverticula of colon: Status: Acute History of Present Illness Narrative: Patient presented to [facility] ER this evening complaining of abdominal pain. Patient states she normally has problems with chronic diarrhea move her bowels anywhere from 2-4 times a day and it is soft and liquid. For the past 5 days she has had no bowel movement. She has been taking a Dulcolax daily since Wednesday and has had no results. This evening she started vomiting, and vomited 3 or 4 times. She feels very bloated/distended and is complaining of diffuse crampy abdominal pain. She has had no fever or chills. She is 8 breakfast this morning but has not been able to eat anything else throughout the day. She notes she is very thirsty right now but she does not really have much of an appetite for food. She has never had anything like this before. Again she mostly runs on the diarrheal side. She has lost about 20 pounds in the past year without trying. Her bowels have generally remained unchanged except for the last week. She has not noted any blood in her stools. There is no family history of colon cancer. She notes she just does not have much of an appetite anymore. She denies any pain or difficulty swallowing. She admits to early satiety. She has chronic reflux and is on Prilosec but also on aspirin daily. She does have a history diverticula. She has had no left lower quadrant pain, fever or chills. She did have a CT this evening which did show a large amount of impacted stool in the rectosigmoid area and diverticula but no diverticulitis and then a significant amount of dilated colon with liquid stool behind it. But there is no signs of obstruction or infection. She had a colonoscopy about a year ago with Dr. Sandoval. I do not have access to the report. Patient states she had polyps and he wants repeat CE again in 3 years time and diverticula. She denies ever having a heart attack or stroke. She is not diabetic. She is not a smoker and has no history of asthma or COPD or sleep apnea. Since she arrived in the hospital she has not had any urge to vomit. She just feels gassy and bloated and distended. She notes she did have a very very small bowel movement this a.m. She did have to strain quite a bit to have this bowel movement. She has had nothing since then and is not passing gas. Review of Systems All systems reviewed & are unremarkable except as noted in HPI and below PFSH All Active Problems (Updated 08/23/22 @ 16:04 by Mercedez Burks DO) Obstipation (Acute) Dental infection (Acute) Transaminitis (Acute) Diverticula of colon (Acute) Fecal impaction of colon (Acute) Hypothyroid (Chronic) HTN (hypertension) (Chronic) Chronic GERD (Acute) Surgical History (Updated 08/22/22 @ 19:23 by Mercedez Burks DO) S/P cholecystectomy Social History Smoking/Tobacco Use Status: Former Tobacco Use Smoking risk assessment performed?: Yes Drug use: Never Substance use type: does not use Meds Allergies and Home Medications Allergies Allergy/AdvReac Type Severity Reaction Status Date / Time Xkyeyno-VAB-GfB Reductase Allergy Unknown Unverified 03/14/14 14:26 Inhibitor [Zedpirq-Oed-Vwe Reductase Inhibitor] Sulfa (Sulfonamide Allergy Unknown Unverified 03/14/14 14:26 Antibiotics) Home Medications Medication Instructions Recorded Confirmed Type Anti-Diarrhea 2 mg tablet 2 mg PO PRN PRN 03/20/13 03/27/13 History (loperamide) Cardizem CD 120 mg 240 mg PO DAILY 03/20/13 08/22/22 History capsule,extended release (diltiazem HCl) ESSENTIAL One Daily (multivitamin) 1 ea PO DAILY 03/20/13 08/22/22 History aspirin 325 mg tablet 325 mg PO DAILY 03/20/13 08/22/22 History atenolol 50 mg tablet 50 mg PO DAILY 03/20/13 08/22/22 History calcium carbonate 500 mg calcium 500 mg PO DAILY 03/20/13 08/22/22 History (1,250 mg) chewable tablet levothyroxine 125 mcg tablet 125 mcg PO Q OTHER DAY 03/20/13 08/23/22 History lorazepam 1 mg tablet 1 mg PO PRN PRN 03/20/13 03/27/13 History levothyroxine 137 mcg tablet 137 mcg PO Q OTHER DAY 08/23/22 08/23/22 History Exam Const General: cooperative, healthy appearing, comfortable, well developed and well groomed Nutritional Appearance: average body habitus Orientation: alert, awake and oriented x3 Other: PHYSICAL EXAM GENERAL APPEARANCE: Alert, healthy appearance, oriented, x 3,? in no acute distress HYDRATION: Well hydrated HEAD, EYES, EARS, NECK, THROAT: Head is normocephalic, pupils equal, round, reactive to light and accommodation, ocular movement intact, sclera clear and no jaundice. ?Dentition intact. LUNGS: normal respiration/normal chest excursion. ?Clear to auscultation bilaterally. ?No wheeze. ?HEART: Regular rate and rhythm. no murmurs EXTREMITY: No edema or cyanosis.? no leg pain, redness, swelling.? ABDOMEN: soft and non-tender to palpation.? Hyperactive bowel sounds.? She has some mild distention and diffuse abdominal tenderness. She does not have any peritoneal signs or signs of acute abdomen Results Labs 08/23/22 05:50 08/23/22 05:50 Labs: Laboratory Results - last 24 hr 08/22/22 08/22/22 08/22/22 17:42 17:50 17:50 WBC 16.04 H RBC 4.40 Hgb 16.1 H Hct 44.9 MCV 102 H MCH 36.6 H MCHC 35.9 RDW 12.5 Plt Count 240 MPV 11.0 Immature Gran % 0.3 Neutrophils % 85.4 Lymphocytes % 5.2 Monocytes % 8.9 Eosinophils % 0.0 Basophils % 0.2 Nucleated RBC % 0.0 Absolute Neutrophils 13.70 H Absolute Lymphocytes 0.83 L Absolute Monocytes 1.43 H Absolute Eosinophils 0.00 Absolute Basophils 0.03 VBG Lactate Sodium 135 L Potassium 3.4 L Chloride 99 Carbon Dioxide 28.9 Anion Gap 7.1 BUN 15 Creatinine 0.9 Est GFR (CKD-EPI 2020) 65.03 Glucose 146 H Calcium 9.7 Magnesium 3.0 H Total Bilirubin 1.4 H AST 29 ALT 26 Alkaline Phosphatase 146 H Troponin I Cancelled Total Protein 6.7 Albumin 3.9 08/22/22 08/22/22 17:50 20:42 WBC RBC Hgb Hct MCV MCH MCHC RDW Plt Count MPV Immature Gran % Neutrophils % Lymphocytes % Monocytes % Eosinophils % Basophils % Nucleated RBC % Absolute Neutrophils Absolute Lymphocytes Absolute Monocytes Absolute Eosinophils Absolute Basophils VBG Lactate 2.3 H* Sodium Potassium Chloride Carbon Dioxide Anion Gap BUN Creatinine Est GFR (CKD-EPI 2020) Glucose Calcium Magnesium Total Bilirubin AST ALT Alkaline Phosphatase Troponin I Cancelled Total Protein Albumin Last Vital Signs Temp 36.5 C 08/22/22 16:38 Pulse 73 08/22/22 16:38 Resp 18 08/22/22 16:38 BP 182/78 H 08/22/22 16:38 Pulse Ox 99 08/22/22 16:38 Time Spent Time spent with Patient: 40-54 minutes Time was spent: preparing to see the patient(eg.review tests), obtaining and/or reviewing separately otained hiistory, ordering medications,tests, procedures, referring, communicating with other health healthcare science specialist, indepentently interpreting results, counseling the patient and care coordination
--- NOTE | 2022-08-22 19:26 | DI.VRAD_ITS ---
PROCEDURE INFORMATION: Exam: CT Abdomen And Pelvis With Contrast Exam date and time: 08/22/2022 6:21 PM Age: 81 years old Clinical indication: Other: Abd pain TECHNIQUE: Imaging protocol: Computed tomography of the abdomen and pelvis with contrast. Contrast material: 350; Contrast volume: 100 ml; Contrast route: INTRAVENOUS (IV); COMPARISON: CT CHEST WITH CONTRAST 09/03/2016 12:59 PM FINDINGS: Lungs: Lung bases clear. Diaphragm: 2.5 cm x 3.8 cm hiatal hernia. Liver: 2.7 cm x 3.6 cm x 3.5 cm heterogeneous but largely hypoattenuating lesion in the medial left hepatic segment with discontinuous nodular enhancement characteristic of a hemangioma. Gallbladder and bile ducts: Gallbladder not identified, suspected to be surgically absent. Correlation with surgical history recommended. Mild intrahepatic biliary dilatation. Common bile duct dilated to 11 mm, probably a postsurgical finding although correlation with surgical history is recommended. Pancreas: Normal appearing pancreas. Spleen: Numerous small indeterminate hypoattenuating splenic lesions, not well characterized but likely cysts and/or hemangiomas. Adrenal glands: Normal appearing adrenal glands. Kidneys and ureters: Normal appearing kidneys. No hydronephrosis. No obstructing ureteral stones. Stomach and bowel: No oral contrast. Stomach partially decompressed. No small bowel dilatation to suggest obstruction. Moderate fluid-filled distention of the cecum, ascending colon, transverse colon, and descending colon suggesting diarrhea or impending diarrhea. Normal appearing fecal material present in the sigmoid colon. Rectum well evacuated. Scattered colonic diverticula through the descending and sigmoid segments but no evidence of diverticulitis. No colonic wall thickening to suggest colitis. Appendix: Normal appendix. Intraperitoneal space: No free air. Trace fluid extending along the left paracolic gutter, nonspecific. Vasculature: Normal caliber abdominal aorta. Atherosclerotic calcification throughout the abdominal aorta and at the splanchnic artery origins. Lymph nodes: No pathologically enlarged mesenteric, retroperitoneal, or pelvic sidewall lymph nodes. Urinary bladder: Urinary bladder partially collapsed but grossly unremarkable, as seen. Reproductive: Normal sized uterus and ovaries. 1.5 cm x 2.6 cm left ovarian cyst. Bones/joints: Spinal degenerative change with discogenic degeneration, vacuum disc deformities, Schmorl's nodes, osteophytes, and facet arthrosis. Grade 1 anterolisthesis of L4 on L5. Mild S-shaped curvature through the visualized portion of the spine. Soft tissues: Small fat containing right inguinal region hernia, probably a femoral hernia given its location lateral to the pubic tubercle. Atrophy of the right upper quadrant abdominal wall musculature. IMPRESSION: Moderate fluid-filled distention of the cecum, ascending colon, transverse colon, and descending colon suggesting diarrhea or impending diarrhea, etiology not demonstrated. Trace adjacent fluid in the left paracolic gutter, nonspecific. No convincing evidence of diverticulitis or colitis. Dictated and Authenticated by: Roger Webb MD. Ordering:MERCY Angulo MD
[2022-08-22 19:42] VITALS: BP 168/74; PULSE 71; RESP 18; O2SAT 97
[2022-08-22 20:07] VITALS: PULSE 65
[2022-08-22 20:14] VITALS: BP 151/70; PULSE 65
[2022-08-22] MEDS: Lactated Ringers 1,000 ML 75 ML IV (20:14)
[2022-08-22] MEDS: Metoprolol 5 MG/5 ML VIAL IVP (20:14)
[2022-08-22] MEDS: MORPHine 2 MG/ML SYR IVP (20:31)
[2022-08-22 20:35] VITALS: BP 151/70; PULSE 65; RESP 16; TEMP 36.7; O2SAT 96
[2022-08-22] MEDS: Bisacodyl 10 MG SUPP PR (21:22)
[2022-08-22 23:33] VITALS: BP 147/65; PULSE 66; RESP 20; TEMP 38; O2SAT 93
[2022-08-23] MEDS: MORPHine 2 MG/ML SYR IVP ×2 (00:19→08:00)
[2022-08-23 01:07] VITALS: PULSE 66
[2022-08-23] MEDS: ACETAMINOPHEN 1,000 MG/100 ML BTL 400 MG IVPB ×2 (02:46→10:55)
[2022-08-23 02:47] VITALS: BP 132/80; PULSE 75
--- NOTE | 2022-08-23 02:52 | NUR.NOTE ---
upon admission patient given a suppository to attempt to dislodge obstruction, after 2 hours no bm. then patient was given a fleets enema, still no sucess. this was discussed with charge nurse and this rn was told to wait for now and that no ng tube was needed at this time and there was no order to alert doctor if there was no success on these 2 attempts. wctm. patients pain being controlled.
[2022-08-23 03:00] VITALS: BP 136/75; PULSE 75
[2022-08-23 06:19] LABS: Abs Immature Grans 0.08 10^3/uL (0.0-0.06); Absolute Basophil Count 0.03 10^3/uL (0.0-0.2); Absolute Eosinophil Count 0.01 10^3/uL (0.0-0.7); Absolute Lymphocyte Count 0.85 10^3/uL (1.2-3.4); Absolute Monocyte Count 1.44 10^3/uL (0.1-0.8); Absolute Neutrophil Count 10.26 10^3/uL (1.2-6.7); Basophils % 0.2; Eosinophils % 0.1; HGB 12.8 g/dL (11.2-15.7); Immature Grans % 0.6; Lymphocytes % 6.7; MCH 36.3 pg (27.0-33.0); MCHC 34.6 % (32.0-36.0); MCV 105 fL (80-95); MPV 11.6 fL (8.0-11.0); Monocytes % 11.4; Platelet Count 155 10^3/uL (130-400); RBC 3.53 10^6/uL (3.93-5.22); RDW 13.2 % (11.7-14.6); WBC 12.67 10^3/uL (4.4-10.8)
[2022-08-23 06:43] LABS: ALT 82 U/L (14-59); AST 103 U/L (15-37); Albumin 2.8 g/dL (3.4-5.0); Alkaline Phosphatase 151 U/L (46-116); BUN 16 mg/dL (7-18); Bilirubin, Total 1.4 mg/dL (0.2-1.0); C-Reactive Protein 4.04 mg/dL (0.0-0.3); CREATININE 0.8 mg/dL (0.55-1.02); Calcium 7.9 mg/dL (8.5-10.1); Chloride 105 mmol/L (98-107); Glucose 144 mg/dL (74-106); Lipase 11 U/L (16-77); Magnesium 2.5 mg/dL (1.8-2.4); Potassium 3.4 mmol/L (3.5-5.1); Sodium 142 mmol/L (136-145); Total Protein 5.2 g/dL (6.4-8.2)
[2022-08-23 07:23] VITALS: PULSE 69
[2022-08-23 07:38] VITALS: BP 113/67; PULSE 73; RESP 16; TEMP 36.8; O2SAT 96
[2022-08-23] MEDS: Metoprolol 5 MG/5 ML VIAL IVP (07:59)
[2022-08-23] MEDS: Normal Saline Flush 10 ML SYR IVP (08:01)
[2022-08-23] MEDS: Pantoprazole 40 MG VIAL IVP (08:01)
[2022-08-23 11:26] LABS: C Diff PCR Negative (Negative)
[2022-08-23 12:14] LABS: Calculated LDL 25 mg/dL (<100); Cholesterol 103 mg/dL (<200); HDL Cholesterol 53 mg/dL (40-60); Triglyceride 129 mg/dL (<150)
[2022-08-23 12:33] LABS: GGT 307 U/L (5-55)
[2022-08-23 13:03] LABS: Procalcitonin 0.2 ng/mL
[2022-08-23 13:05] VITALS: PULSE 65
--- NOTE | 2022-08-23 13:19 | DSE_ITS ---
Date of service: 08/23/22 Time of Service: 13:19 DS: Diagnosis Discharge Diagnosis (1) Chronic GERD: Status: Acute (2) HTN (hypertension): Status: Chronic (3) Hypothyroid: Status: Chronic (4) S/P cholecystectomy: (5) Fecal impaction of colon: Status: Acute Asessment and Plan: resolved pt normaly has diarrhea daily miralax need records from [facility]. ce about a year ago (6) Diverticula of colon: Status: Acute (7) Transaminitis: Status: Acute Asessment and Plan: -denies hx of liver issues -hold asa/nsaid's over weekend nl liver CT 08/22 (8) Dental infection: Status: Acute Asessment and Plan: pt had dental infections in may/june in [facility] and was on an abx and unknown pain killer Discharge Plan Disposition Patient Disposition: Home Condition: Improving Discharge Details Reason For Visit: Bowel Obstruction/Obstipation Admit Date/Time: 08/22/22 19:15 Admit Provider: Mercedez Burks Attending Provider: Mercedez Burks Primary Care Provider: Ravindra Ordoñez Hospital Course Hospital Course: see addendum Home Meds and New Rx's Prescriptions: Continued levothyroxine 125 MCG tablet 125 mcg PO Q OTHER DAY Rx Instructions: alternates with 137 mcg tab diltiazem HCl [Cardizem CD] 120 MG capsule,extended release 24hr 240 mg PO DAILY levothyroxine 137 mcg tablet 137 mcg PO Q OTHER DAY Patient Comments: Take 1 tablet by mouth every other day as directed Take 1 tab by mouth alternating with Levothyroxine 125mcg every other day Held multivitamin [ESSENTIAL One Daily] 1 EACH tablet 1 ea PO DAILY Hold Instructions: Resume on 08/28/22. aspirin 325 MG tablet 325 mg PO DAILY Hold Instructions: Resume on 08/28/22. loperamide [Anti-Diarrhea] 2 MG tablet 2 mg PO PRN PRN Hold Instructions: Resume on 08/28/22. Patient Comments: not taking calcium carbonate 500 MG tablet,chewable 500 mg PO DAILY Hold Instructions: Resume on 08/28/22. lorazepam 1 MG tablet 1 mg PO PRN PRN Hold Instructions: Resume on 08/28/22. Patient Comments: not taking atenolol 50 MG tablet 50 mg PO DAILY Hold Instructions: Resume on 08/28/22. Patient Comments: not taking Discontinued omeprazole magnesium [Prilosec OTC] 20 MG tablet,delayed release (DR/EC) 20 mg PO DAILY Patient Comments: not taking Discharge Instructions Additional Instructions: -No driving for 24 hrs -arrive 30 mins to mammogram appointment at [facility] to have blood re-checked at oupt lab. Orders have been placed. -Follow-up with Dr. Burks [facility] the [facility]. Across [address] from the main entrance at the hospital. [phone] -soft diet: No beef/pork raw vegetables x1 -week. Cooked vegetables are fine -no straining to move bowels -take a dose of Miralax dialy -It is ok to shower/bathe as normal -Soft bland diet until - see below -You may find that your appetite is smaller. Eat 3-6 small meals throughout the day. It is important to drink lots of water after surgery, 6-10 glasses a day. -do not take aspirin/tylenol/NSAID's, any supplements or vitamins, or drink alcohol, until follow-up appointment. -We do want you up walking, at least 5-6 times per day. This is very important to prevent pneumonia and blood clots. You can climb stairs, take them slowly. -You may find that you are very tired after being in the hospital- this is normal. -please do not smoke for a minimum of 72 hours after surgery. Discharge Instructions: Eating a Soft, Barnes Diet You have been prescribed a soft, bland diet. This reduces the amount of work your digestive tract has to do. It also reduces the chance that your digestive tract will be irritated by the food you eat. A soft, bland diet is prescribed for people with digestive problems. This is different from a soft diet that is prescribed for people with issues chewing and swallowing. The diet you have been prescribed consists of foods that are tender, mildly seasoned, and easy to digest. While on this diet, don't eat fried or spicy foods,?or raw fruits and vegetables. Also don't drink alcohol. General guidelines * Eat in a calm, relaxed atmosphere. How you eat may be as important as what you eat. Don?t bautista while eating. Chew your food slowly and thoroughly, and swallow slowly. * Eat small meals often throughout the day. But don?t eat?3?hours before lying down. * Think about raising the head of your bed 6 or 9 inches. Wedge pillows let you sleep on an incline and may be helpful. * Don't eat any foods that cause discomfort. * Don?t use NSAIDs (nonsteroidal anti-inflammatory drugs), such as aspirin and ibuprofen. Also don't take medicine that contain aspirin. NSAIDs can cause ulcers and delay or prevent ulcer healing. * Use antacids as needed. But keep in mind that magnesium-containing antacids may cause diarrhea. * Don't smoke. Foods to eat * Cream of wheat and cream of rice * Cooked white rice * Mashed potatoes and boiled potatoes without skin * Plain pasta and noodles * Plain white crackers (such as no-salt soda crackers) * White bread * Applesauce * Cooked fruits without skins or seeds * Mild juices, such as apple and grape * Bananas * Cooked or mashed vegetables without stems and seeds * Carrots * Summer squash (zucchini, yellow squash) * Winter squash (acorn, butternut, spaghetti squash) * Cottage cheese * Mild hard or soft cheeses * Custard * Yogurt without seeds or nuts * Milk (you may need lactose-free milk) * Ice cream without seeds, nuts, chocolate chips, or toppings * Smooth peanut butter * Eggs * Fish, turkey, chicken, or other lean meat that is not tough or stringy * Tofu Foods to stay away from * Nuts and seeds * Snack foods, such as the following: * Chocolate-containing snacks, candy, pastries, or cakes. * Potato chips (plain, barbecued, or other flavors) * Taco chips or nachos * [place] chips * Popcorn, popcorn cakes, or rice cakes * Crackers with nuts, seeds, or spicy seasonings * Vietnamese fries * Fried or greasy foods * Whole-grain breads, rolls, and crackers * Breads and rolls with nuts, seeds, or bran * Bran and granola cereals * Berries with seeds, such as strawberries, raspberries, and blackberries * Acidic fruits, such as oranges, grapefruits, froilan, limes, and pineapples * Raw vegetables * Mild or hot peppers * Sauerkraut and pickled vegetables * Tomatoes or tomato products, such as tomato paste, tomato sauce, and tomato juice * Barbecue sauce * Spicy or flavored cheeses, such as jalape?o and black pepper cheese * Crunchy peanut butter * Dried cooked beans, such as smith, kidney, or navy beans * The following meats: * Fried or greasy meats * Processed, spicy meats, such as sausage, pagan, ham, and lunch meats * Ribs and other meats with barbecue sauce * Tough or stringy meats, such as corned beef or beef jerky Drinks to Avoid * Alcohol * Coffee and regular teas * Yuri and other drinks with caffeine * Cranberry, orange, pineapple, and grapefruit juice * Lemonade * Vegetable juice * Whole milk, if you are lactose intolerant * Peppermint Stand Alone Forms: Nursing Discharge Form Referrals: Mercedez Burks DO [OSTEOPATHIC DOCTOR] - (Please call Wednesday to make a follow up appointment with Dr. Burks for .) Activity:: no strenuous activity or Equipment/Supplies:: No Equipment Needed Diet:: soft diet DS: Summary Time Spent with Patient providing and/or coordinating discharge services: Greater than 30 minutes Status at Discharge Functional status at discharge: independent ambulation Overall status at discharge: patient is progressing back to baseline Mental Status: mental status grossly normal Speech and Movement: speech and movement normal Mood: congruent mood Affect: normal affect Exam Psych Mental Status: mental status grossly normal Speech and Movement: speech and movement normal Mood: congruent mood Affect: normal affect DS: Data Vitals/I&O Vitals and I&O: Vital Signs Temperature 36.8 C 08/23/22 07:38 Temperature Source Tympanic 08/23/22 07:38 Pulse 73 08/23/22 07:38 Pulse Rhythm Regular 08/23/22 09:53 Respiratory Rate 16 08/23/22 07:38 Respiratory Effort Normal 08/23/22 09:53 Respiratory Depth Normal 08/23/22 09:53 Respiratory Pattern Normal 08/23/22 09:53 Blood Pressure 113/67 08/23/22 07:38 Blood Pressure Position Supine 08/22/22 16:38 Pulse Oximetry 96 08/23/22 07:38 Oxygen Delivery Method Room Air 08/23/22 07:38 Oxygen Flow Rate 0 08/23/22 07:38 Pain Level 2 08/23/22 07:38 Intake & Output 08/22/22 08/23/22 08/23/22 23:59 11:59 23:59 Intake Total 1100 / 1100 100 / 340 240 / 340 Balance 1100 / 1100 100 / 340 240 / 340 Weight 68.039 kg Intake: IV 1100 / 1100 100 / 100 Oral 240 / 240 Other: Urine Appearance Clear Stool Size Large Stool Characteristics Liquid Data Completed and Pending Labs on day of discharge: Labs from last 24 hours 08/23/22 08/23/22 08/23/22 11:00 11:00 11:00 WBC RBC Hgb Hct MCV MCH MCHC RDW Plt Count MPV Immature Gran % Neutrophils % Lymphocytes % Monocytes % Eosinophils % Basophils % Nucleated RBC % Absolute Neutrophils Absolute Lymphocytes Absolute Monocytes Absolute Eosinophils Absolute Basophils VBG Lactate Sodium Potassium Chloride Carbon Dioxide Anion Gap BUN Creatinine Est GFR (CKD-EPI 2020) Glucose Calcium Magnesium Total Bilirubin GGT AST ALT Alkaline Phosphatase Troponin I C-Reactive Protein Total Protein Albumin Triglycerides Total Cholesterol LDL Cholesterol, Calc HDL Cholesterol Lipase Procalcitonin 0.2 Stool Campylobacter PCR Pending Stl C.difficile Tox PCR Stool Salmonella PCR Pending Stool Shigella PCR Pending KYLE Titer Pending KYLE Titer 2 Pending KYEL Titer 3 Pending KYLE Interpretation Pending Hepatitis A IgM Ab Hep Bs Antigen Hep B Core Total Ab Hepatitis C Antibody Shiga Toxin (PCR) Pending 08/23/22 08/23/22 08/23/22 11:00 11:00 10:30 WBC RBC Hgb Hct MCV MCH MCHC RDW Plt Count MPV Immature Gran % Neutrophils % Lymphocytes % Monocytes % Eosinophils % Basophils % Nucleated RBC % Absolute Neutrophils Absolute Lymphocytes Absolute Monocytes Absolute Eosinophils Absolute Basophils VBG Lactate Sodium Potassium Chloride Carbon Dioxide Anion Gap BUN Creatinine Est GFR (CKD-EPI 2020) Glucose Calcium Magnesium Total Bilirubin GGT 307 H AST ALT Alkaline Phosphatase Troponin I C-Reactive Protein Total Protein Albumin Triglycerides 129 Total Cholesterol 103 LDL Cholesterol, Calc 25 HDL Cholesterol 53 Lipase Procalcitonin Stool Campylobacter PCR Stl C.difficile Tox PCR Negative Stool Salmonella PCR Stool Shigella PCR KYLE Titer KYLE Titer 2 KYLE Titer 3 KYLE Interpretation Hepatitis A IgM Ab Pending Hep Bs Antigen Pending Hep B Core Total Ab Pending Hepatitis C Antibody Pending Shiga Toxin (PCR) 08/23/22 08/23/22 08/23/22 05:50 05:50 05:50 WBC 12.67 H RBC 3.53 L Hgb 12.8 D Hct 37.0 MCV 105 H MCH 36.3 H MCHC 34.6 RDW 13.2 Plt Count 155 MPV 11.6 H Immature Gran % 0.6 Neutrophils % 81.0 Lymphocytes % 6.7 Monocytes % 11.4 Eosinophils % 0.1 Basophils % 0.2 Nucleated RBC % 0.0 Absolute Neutrophils 10.26 H Absolute Lymphocytes 0.85 L Absolute Monocytes 1.44 H Absolute Eosinophils 0.01 Absolute Basophils 0.03 VBG Lactate Sodium 142 Potassium 3.4 L Chloride 105 Carbon Dioxide 28.0 Anion Gap 9.0 BUN 16 Creatinine 0.8 Est GFR (CKD-EPI 2020) 74.90 Glucose 144 H Calcium 7.9 L Magnesium Cancelled 2.5 H Total Bilirubin 1.4 H GGT AST 103 H ALT 82 H Alkaline Phosphatase 151 H Troponin I C-Reactive Protein 4.04 H Total Protein 5.2 L Albumin 2.8 L Triglycerides Total Cholesterol LDL Cholesterol, Calc HDL Cholesterol Lipase 11 L Procalcitonin Stool Campylobacter PCR Stl C.difficile Tox PCR Stool Salmonella PCR Stool Shigella PCR KYLE Titer KYLE Titer 2 KYLE Titer 3 KYLE Interpretation Hepatitis A IgM Ab Hep Bs Antigen Hep B Core Total Ab Hepatitis C Antibody Shiga Toxin (PCR) 08/22/22 08/22/22 08/22/22 20:42 17:50 17:50 WBC 16.04 H RBC 4.40 Hgb 16.1 H Hct 44.9 MCV 102 H MCH 36.6 H MCHC 35.9 RDW 12.5 Plt Count 240 MPV 11.0 Immature Gran % 0.3 Neutrophils % 85.4 Lymphocytes % 5.2 Monocytes % 8.9 Eosinophils % 0.0 Basophils % 0.2 Nucleated RBC % 0.0 Absolute Neutrophils 13.70 H Absolute Lymphocytes 0.83 L Absolute Monocytes 1.43 H Absolute Eosinophils 0.00 Absolute Basophils 0.03 VBG Lactate 2.3 H* Sodium Potassium Chloride Carbon Dioxide Anion Gap BUN Creatinine Est GFR (CKD-EPI 2020) Glucose Calcium Magnesium Total Bilirubin GGT AST ALT Alkaline Phosphatase Troponin I Cancelled C-Reactive Protein Total Protein Albumin Triglycerides Total Cholesterol LDL Cholesterol, Calc HDL Cholesterol Lipase Procalcitonin Stool Campylobacter PCR Stl C.difficile Tox PCR Stool Salmonella PCR Stool Shigella PCR KYLE Titer KYLE Titer 2 KYLE Titer 3 KLYE Interpretation Hepatitis A IgM Ab Hep Bs Antigen Hep B Core Total Ab Hepatitis C Antibody Shiga Toxin (PCR) 08/22/22 08/22/22 17:50 17:42 WBC RBC Hgb Hct MCV MCH MCHC RDW Plt Count MPV Immature Gran % Neutrophils % Lymphocytes % Monocytes % Eosinophils % Basophils % Nucleated RBC % Absolute Neutrophils Absolute Lymphocytes Absolute Monocytes Absolute Eosinophils Absolute Basophils VBG Lactate Sodium 135 L Potassium 3.4 L Chloride 99 Carbon Dioxide 28.9 Anion Gap 7.1 BUN 15 Creatinine 0.9 Est GFR (CKD-EPI 2020) 65.03 Glucose 146 H Calcium 9.7 Magnesium 3.0 H Total Bilirubin 1.4 H GGT AST 29 ALT 26 Alkaline Phosphatase 146 H Troponin I Cancelled C-Reactive Protein Total Protein 6.7 Albumin 3.9 Triglycerides Total Cholesterol LDL Cholesterol, Calc HDL Cholesterol Lipase Procalcitonin Stool Campylobacter PCR Stl C.difficile Tox PCR Stool Salmonella PCR Stool Shigella PCR KYLE Titer KYLE Titer 2 KYLE Titer 3 KYLE Interpretation Hepatitis A IgM Ab Hep Bs Antigen Hep B Core Total Ab Hepatitis C Antibody Shiga Toxin (PCR) PFSH All Active Problems (Updated 08/23/22 @ 13:22 by Mercedez Burks DO) Dental infection (Acute) Transaminitis (Acute) Diverticula of colon (Acute) Fecal impaction of colon (Acute) Hypothyroid (Chronic) HTN (hypertension) (Chronic) Chronic GERD (Acute) Surgical History (Updated 08/22/22 @ 19:23 by Mercedez Burks DO) S/P cholecystectomy Social History Smoking/Tobacco Use Status: Former Tobacco Use Smoking risk assessment performed?: Yes Drug use: Never Substance use type: does not use Time Spent with Patient Time Spent with Patient: 45-69 minutes Time was spent: preparing to see the patient(eg.review tests), obtaining and/or reviewing separately otained hiistory, ordering medications,tests, procedures, referring, communicating with other health health care analyst, indepentently interpreting results, counseling the patient and care coordination
[2022-08-23] MEDS: Lactated Ringers 1,000 ML 75 ML IV (13:44)
--- NOTE | 2022-08-23 16:07 | W.PM.PROGNOT ---
Date of Service Date of service: 08/23/22 Time of Service: 13:00 Assessment and Plan Assessment and plan (1) Obstipation: Status: Acute (2) Dental infection: Status: Acute (3) Transaminitis: Status: Acute Assessment and plan: - I have no etiology for the increase in transaminitis. -The patient was recently in [place] for 2 months. We will run a panel for acute hepatitis. She has had no symptoms from this. Liver appears normal on CT from the ER. -We will plan on discharge home and follow-up in clinic on . We will repeat lab work at that time. -We will see if we can get the colonoscopy report from Dr. Sandoval office. -Patient has noted early satiety and explained/unanticipated weight loss. There was an enlarged lymph node near the stomach noted on CT. EGD may be indicated to follow-up as an outpatient. -See discharge instructions. Avoid Tylenol and alcohol and continue on a low-fat diet -MiraLAX daily to prevent constipation I will see her in the clinic afternoon after her mammogram. Blood work was ordered in the computer and she should go to her mammogram appointment 30 minutes related to have repeat labs. (4) Diverticula of colon: Status: Acute (5) Fecal impaction of colon: Status: Acute (6) Hypothyroid: Status: Chronic (7) HTN (hypertension): Status: Chronic (8) Chronic GERD: Status: Acute Subjective Subjective Interval history since last seen: Patient had a large volume of stool overnight. She is feeling much better. She still has some mild bloating and some tenderness along her flanks. She ate lunch and feels good and she wants to go home. She has been up walking around in her room. She denies feeling weak or dizzy. She has no chest pain or shortness of breath. Her labs today did note an increase in her LFTs/transaminases. Patient has had her gallbladder out. She is not a heavy drinker. She denies any recent travel. She was in [place] for May and June. She did have a dental emergency while she was there and took antibiotics and an unknown painkiller. This is was in June. She does not have right upper quadrant pain per se. She is not overtly jaundiced. She is not nauseated. And she would like to go home. She otherwise has had no changes to her diet or daily routine. She has not started on any new supplements. She has not started or made any dietary changes. She has not done any recent traveling outside of the formerly [facility]. Other than when she was in [place] this spring. Exam Const General: cooperative, healthy appearing, comfortable, no acute distress, well developed and well groomed Nutritional Appearance: average body habitus Orientation: alert, awake and oriented x3 Other: L: clear H: r/r/r Abdom-soft. Normal bowel sounds. Minimal diffuse abdominal pain probably related to the distention from last p.m. No tenderness over to the liver. le- no edema Objective Last Vital Signs Temp 36.8 C 08/23/22 07:38 Pulse 65 08/23/22 13:05 Resp 16 08/23/22 07:38 BP 113/67 08/23/22 07:38 Pulse Ox 96 08/23/22 07:38 Laboratory Results - last 24 hr 08/22/22 08/22/22 08/22/22 17:42 17:50 17:50 WBC 16.04 H RBC 4.40 Hgb 16.1 H Hct 44.9 MCV 102 H MCH 36.6 H MCHC 35.9 RDW 12.5 Plt Count 240 MPV 11.0 Immature Gran % 0.3 Neutrophils % 85.4 Lymphocytes % 5.2 Monocytes % 8.9 Eosinophils % 0.0 Basophils % 0.2 Nucleated RBC % 0.0 Absolute Neutrophils 13.70 H Absolute Lymphocytes 0.83 L Absolute Monocytes 1.43 H Absolute Eosinophils 0.00 Absolute Basophils 0.03 VBG Lactate Sodium 135 L Potassium 3.4 L Chloride 99 Carbon Dioxide 28.9 Anion Gap 7.1 BUN 15 Creatinine 0.9 Est GFR (CKD-EPI 2020) 65.03 Glucose 146 H Calcium 9.7 Magnesium 3.0 H Total Bilirubin 1.4 H GGT AST 29 ALT 26 Alkaline Phosphatase 146 H Troponin I Cancelled C-Reactive Protein Total Protein 6.7 Albumin 3.9 Triglycerides Total Cholesterol LDL Cholesterol, Calc HDL Cholesterol Lipase Procalcitonin Stl C.difficile Tox PCR 08/22/22 08/22/22 08/23/22 17:50 20:42 05:50 WBC RBC Hgb Hct MCV MCH MCHC RDW Plt Count MPV Immature Gran % Neutrophils % Lymphocytes % Monocytes % Eosinophils % Basophils % Nucleated RBC % Absolute Neutrophils Absolute Lymphocytes Absolute Monocytes Absolute Eosinophils Absolute Basophils VBG Lactate 2.3 H* Sodium 142 Potassium 3.4 L Chloride 105 Carbon Dioxide 28.0 Anion Gap 9.0 BUN 16 Creatinine 0.8 Est GFR (CKD-EPI 2020) 74.90 Glucose 144 H Calcium 7.9 L Magnesium 2.5 H Total Bilirubin 1.4 H GGT AST 103 H ALT 82 H Alkaline Phosphatase 151 H Troponin I Cancelled C-Reactive Protein 4.04 H Total Protein 5.2 L Albumin 2.8 L Triglycerides Total Cholesterol LDL Cholesterol, Calc HDL Cholesterol Lipase 11 L Procalcitonin Stl C.difficile Tox PCR 08/23/22 08/23/22 08/23/22 05:50 05:50 10:30 WBC 12.67 H RBC 3.53 L Hgb 12.8 D Hct 37.0 MCV 105 H MCH 36.3 H MCHC 34.6 RDW 13.2 Plt Count 155 MPV 11.6 H Immature Gran % 0.6 Neutrophils % 81.0 Lymphocytes % 6.7 Monocytes % 11.4 Eosinophils % 0.1 Basophils % 0.2 Nucleated RBC % 0.0 Absolute Neutrophils 10.26 H Absolute Lymphocytes 0.85 L Absolute Monocytes 1.44 H Absolute Eosinophils 0.01 Absolute Basophils 0.03 VBG Lactate Sodium Potassium Chloride Carbon Dioxide Anion Gap BUN Creatinine Est GFR (CKD-EPI 2020) Glucose Calcium Magnesium Cancelled Total Bilirubin GGT AST ALT Alkaline Phosphatase Troponin I C-Reactive Protein Total Protein Albumin Triglycerides Total Cholesterol LDL Cholesterol, Calc HDL Cholesterol Lipase Procalcitonin Stl C.difficile Tox PCR Negative 08/23/22 08/23/22 11:00 11:00 WBC RBC Hgb Hct MCV MCH MCHC RDW Plt Count MPV Immature Gran % Neutrophils % Lymphocytes % Monocytes % Eosinophils % Basophils % Nucleated RBC % Absolute Neutrophils Absolute Lymphocytes Absolute Monocytes Absolute Eosinophils Absolute Basophils VBG Lactate Sodium Potassium Chloride Carbon Dioxide Anion Gap BUN Creatinine Est GFR (CKD-EPI 2020) Glucose Calcium Magnesium Total Bilirubin GGT 307 H AST ALT Alkaline Phosphatase Troponin I C-Reactive Protein Total Protein Albumin Triglycerides 129 Total Cholesterol 103 LDL Cholesterol, Calc 25 HDL Cholesterol 53 Lipase Procalcitonin 0.2 Stl C.difficile Tox PCR Time Spent with Patient Time Spent with Patient: >50 minutes Time was spent: preparing to see the patient(eg.review tests), obtaining and/or reviewing separately otained hiistory, ordering medications,tests, procedures, referring, communicating with other health director of critical care, indepentently interpreting results, counseling the patient, care coordination and other
[2022-08-24 12:13] LABS: Hepatitis A Antibody IgM Negative (Negative); Hepatitis B Core Antibody Negative (Negative); Hepatitis B surface Ag Negative (Negative); Hepatitis C Ab w Rflx HCV PCR Negative (Negative)
[2022-08-24 12:17] LABS: ANA Interpretation Negative (Negative)
== END 2022-08-23 14:19 | disposition home or self-care (01) | DRG 641 ==
LOC: ER 19:23 → MS 19:51
PROVIDERS: Admitting Provider Surgery; Emergency Provider Nurse Practitioner Acute Care; PCP Internal Medicine; Visit Provider Surgery
DX: E86.0 Dehydration (principal); K56.41 Fecal impaction; K21.9 Gastro-esophageal reflux disease without esophagitis; E03.9 Hypothyroidism, unspecified; I10 Essential (primary) hypertension; K57.30 Diverticulosis of large intestine without perforation or abscess without bleeding; R74.01 Elevation of levels of liver transaminase levels; R11.2 Nausea with vomiting, unspecified
CPT/HCPCS: 36415; 80053; 80061; 83690; 84145; 86704; 86709; 86803; 87340; 87493; 87505; 96361; 96365; 96375; 99222; 99239; 99285; 74177; 82272; 82977; 83605; 83735; 84484; 85025; 86038; 86140; J0131; J0780; J1170; J2270; J3490

== ENCOUNTER 2022-08-27 02:08 | Outpatient (CLI) | payer MEDICARE, SELFPAY ==
--- NOTE | 2022-08-27 | DI.MAMMO_ITS ---
Exam(s) MAMMO SCREENING EXAM: MAMMO SCREENING CLINICAL HISTORY: SCREENING, Z12.39. TECHNIQUE: Bilateral full field digital CC and MLO mammographic images were obtained with 3D tomosyn thesis and utilizing computer aided detection (CAD). COMPARISON: Prior mammograms dating back to 2013 were reviewed, the most recent being April 2021. . FINDINGS: There has been no significant change in the appearance and distribution of the fibroglandular tissue. Stable benign-appearing nodules are again noted in both breasts. There are no new spiculated masses nor malignant appearing microcalcification groups. There is no significant architectural distortion nor skin thickening-retraction. IMPRESSION: Stable benign findings. No radiographic evidence of malignancy. BI-RADS Category 2 - Benign Findings Breast Density - Category B - Scattered areas of fibroglandular density Breast density Category C or D implies that the patient has dense breast tissue. Dense breast tissue can make it harder to find cancer on a mammogram. Dense breast tissue is also associated with an incr eased risk of breast cancer. This information about the result of the mammogram report was provided to the patient to raise their awareness. Use this report when you speak with the patient about their risks for breast cancer, which includes their family history. At that time, you may recommend additional screening tests (Ultrasoun d or MRI) as these tests may add significant information. A negative radiographic report should not delay biopsy if a dominant or clinically suspicious mass is present. Up to ten percent of cancers are not identified on mammography. A negative report may reinforce clinical impression. Adenosis and dense breasts may obscure an underlying neoplasm. False positive reports average 6 to 10%. Patient will receive a letter notifying them of these results.
== END 2022-08-27 02:28 ==
LOC: DI 02:12
PROVIDERS: PCP Internal Medicine; Visit Provider Nurse Practitioner Family
DX: Z12.31 Encounter for screening mammogram for malignant neoplasm of breast (principal)
CPT/HCPCS: 77063; 77067

== ENCOUNTER → 2022-12-31 02:41 | Outpatient (CLI) | payer MEDICARE, SELFPAY ==
--- NOTE | 2022-12-31 15:31 | DI.US_ITS ---
Exam(s) US CAROTID EXAM: US CAROTID CLINICAL HISTORY: RT CAROTID ARTERY STENOSIS I65.21. TECHNIQUE: Ultrasound carotids performed using grayscale, color-flow, and spectral Doppler imaging. COMPARISON: US US CAROTID from 05/15/2021 FINDINGS: CAROTID ARTERIES: On the right side there is plaque again noted at the carotid bulb and proximal right ICA with signifi cantly elevated velocities in the right carotid bulb and proximal and mid right ICA in the neck, with peak systolic velocities of 208 cm/sec, 317 cm/sec, and 259 cm/sec, respectively. Stenosis estimate d at greater than 70 percent. On the left side there is also plaque evident at the carotid bulb and proximal ICA but without signif icant elevated velocities, indicating the amount of stenosis is less than 50 percent. VERTEBRAL ARTERIES: Antegrade flow is demonstrated in both vertebral arteries. Measurements: R Bulb: 208.2cm/s PS / 25.3cm/s ED R CCA: 71.1cm/s PS / 15.4cm/s ED R ECA: 173.9cm/s PS / 7.8cm/s ED R ICA Prox: 317cm/s PS / 52.8cm/s ED R ICA Mid: 259.2cm/s PS / 29.9cm/s ED R ICA Distal: 75.4cm/s PS /11.7cm/s ED R Vert: 52cm/s PS / 9.4cm/s ED R SVR: 4.5 R DVR: 3.4 L Bulb: 96.8cm/s PS / 18.1cm/s ED L CCA: 71.7cm/s PS / 13.8cm/s ED L ECA: 109.7cm/s PS / 16.7cm/s ED L ICA Prox: 83.1cm/s PS / 14.1cm/s ED L ICA Mid: 81.9cm/s PS / 18.9cm/s ED L ICA Distal: 95.1cm/s PS / 22.5cm/s ED L Vert: 59.8cm/s PS / 8cm/s ED L SVR: 1.4 L DVR: 1.3 IMPRESSION: There is significant greater than 70 % stenosis in the right carotid bulb-proximal right ICA. There is less than 50 percent stenosis on the left side. Antegrade flow is demonstrated in both vertebral arteries. Criteria for Carotid Stenosis: Normal: ICA PSV <125 cm/s no plaque or intimal thickening is visible. <50% stenosis: ICA PSV <125 cm/s and plaque or intimal thickening is visible. 50-69% stenosis: ICA PSV is 125-250 cm/s and plaque is visible. >70% stenosis to near occlusion: ICA PSV >250 cm/s with visible plaque and luminal narrowing. DATA REPOSITORY:
== END ==
PROVIDERS: PCP Internal Medicine; Visit Provider Internal Medicine
DX: I65.21 Occlusion and stenosis of right carotid artery (principal)
CPT/HCPCS: 93880

== ENCOUNTER 2023-07-21 17:35 | Observation (INO) | payer MEDICARE, SELFPAY ==
[2023-07-21] VITALS (17 sets, daily range): BP systolic 196–213; BP diastolic 55–68; PULSE 60–78; RESP 18; TEMP 37; O2SAT 88–96
--- NOTE | 2023-07-21 17:45 | DI.CT_ITS ---
Exam(s) CT ABDOMEN PELVIS W EXAM: CT ABDOMEN PELVIS W CLINICAL HISTORY: constipation x 4 days, h/o bowel obstructions. TECHNIQUE: Imaging Protocol: Axial computed tomography images with coronal and sagittal reformatted images were created and reviewed CONTRAST MATERIAL: Intravenous: Omnipaque-350 100cc Oral: None COMPARISON: CT CT ABDOMEN PELVIS W from 08/22/2022 FINDINGS: VISUALIZED LUNG BASES: No nodules nor pleural effusions evident. ABDOMEN: There is no ascites. LIVER: Previously described probable hemangioma in the medial aspect of the right hepatic lobe adjace nt to the inter lobar fissure is again noted and appears unchanged in size, measuring approximately 4 x 3 cm, similar to previous. There are no additional focal findings in the liver. There also no di lated intrahepatic ducts. GALLBLADDER/BILIARY: Gallbladder is again not seen and presumed to be surgically absent. CBD diamete r is again noted to be mildly prominent, unchanged and consistent with the patient's advanced age and post cholecystectomy status. PANCREAS: No evidence of pancreatic mass nor dilatation of the pancreatic duct. SPLEEN: Spleen size is normal. Again noted are multiple small hypodensities in the spleen, similar t o previous. Splenic and portal veins are patent. ADRENALS: There are no significant adrenal masses. KIDNEYS:No cysts evident. No solid renal masses. No calculi nor hydronephrosis.. ABDOMINAL AORTA: Calcified but not enlarged. The common iliac arteries are also calcified but not en larged. LYMPH NODES:There is no retroperitoneal nor paraaortic adenopathy. ABDOMINAL WALL: No evidence of significant anterior abdominal wall nor inguinal hernia. GI: Stomach is fluid-filled and mildly distended. Lower esophagus also fluid-filled and hiatal herni a noted. The entire colon above the level of the sigmoid is fluid-filled and mildly distended, simil ar to previous. Cecal measurement is 6 cm. There also a few fluid-filled upper normal limits diamet er small bowel loops ranging up to 2 cm diameter. There are sigmoid diverticuli but no evidence of o bvious acute diverticulitis. PELVIS: GI: No evidence of appendicitis.No evidence of sigmoid diverticulitis. LYMPH NODES: There is no intrapelvic nor inguinal adenopathy. REPRODUCTIVE: Uterus size is normal. No findings in the right adnexa. In the high left adnexa there is a left ovarian cyst measuring 2.5 by 1.8 cm., similar to previous study. No free fluid in the pe lvis. URINARY BLADDER: No calculi nor obvious masses evident OSSEOUS: No fractures and no significant osseous lesions. Multilevel chronic degenerative disc disease again noted. Degenerative anterolisthesis L4 upon L5 ag ain noted. Modic type sub endplate changes at T11-T12 again noted. IMPRESSION: 1. Fluid-filled and slightly dilated colon from the cecum to the junction of the descending left and sigmoid colon as well as some fluid-filled upper normal limits diameter small bowel loops. Findings most probably consistent with enteritis, somewhat similar to the prior study of 08/22/2022. Less lik oz bowel obstruction. 2. Stable appearance of the probable hemangioma in the liver. 3. Gallbladder not seen and presumed to be surgically absent. 4. Other findings as above. RADIATION DOSE DELIVERED: 831.43mGy.cm Total DLP DATA REPOSITORY: All CT scans at this facility are submitted to the National Radiology Data Registry (NRDR) Dose Index Registry (DIR) with the [employer] (A[employer]). RADIATION OPTIMIZATION: All CT scans at this facility use at least one of these dose optimization te chniques: automated exposure control; mA and/or kV adjustment per patient size (includes targeted exa ms where dose is matched to clinical indication); or iterative reconstruction.
--- NOTE | 2023-07-21 17:45 | RT.EKG_ITS ---
APPROVED REPORT Exam: Resting ECG Reason for Exam: upper abd pain Patient Location: E HR:72 bpm ECG Measurements Heart Rate 72 AXIS TN 170 P 64 QRSd 88 QRS -8 QT 418 T 38 QTc 452 Conclusion Sinus rhythm...normal P axis, V-rate 60- 99 Atrial premature complex...SV complex w/ short R-R interval
--- NOTE | 2023-07-21 17:50 | ED.GENADUL_ITS ---
Discharge Plan Discharge Details Chief Complaint: Abd Prob Primary Care Provider: Ravindra Ordoñez ED Provider: Padma Olivas Home Meds and New Rx's Prescriptions: No Action aspirin 325 MG tablet 81 mg PO DAILY Hold Instructions: Resume on 08/28/22. levothyroxine 125 MCG tablet 125 mcg PO Q OTHER DAY Rx Instructions: alternates with 137 mcg tab diltiazem HCl [Cardizem CD] 120 MG capsule,extended release 24hr 240 mg PO DAILY calcium carbonate 500 MG tablet,chewable 500 mg PO DAILY Hold Instructions: Resume on 08/28/22. atenolol 50 MG tablet 50 mg PO DAILY Hold Instructions: Resume on 08/28/22. Patient Comments: not taking levothyroxine 137 mcg tablet 137 mcg PO Q OTHER DAY Patient Comments: Take 1 tablet by mouth every other day as directed Take 1 tab by mouth alternating with Levothyroxine 125mcg every other day HPI General Date/Time Provider Initiated Documentation: 07/21/23 17:35 . HPI Narrative: Meenakshi is an 82-year-old female with history of HTN, hypothyroid, bowel obstruction who presents to the emergency department for evaluation of abdominal pain. She reports she has been constipated, not passing any stool for the last 4 days despite MiraLAX and Dulcolax use. Today around 1 PM she developed upper abdominal pain that she describes as severe cramping, like labor pains. Pain does not radiate. This is accompanied by nausea, no vomiting. She was passing gas until onset of pain. Denies history of abdominal surgery. Denies chest pain, shortness of breath, dysuria, change in urine output. She does get colonoscopies every 3 years due to polyps. Related Data Home Medications Medication Instructions Recorded Confirmed Cardizem CD 120 mg 240 mg PO DAILY 03/20/13 07/21/23 capsule,extended release (diltiazem HCl) aspirin 325 mg tablet 81 mg PO DAILY 03/20/13 07/21/23 atenolol 50 mg tablet 50 mg PO DAILY 03/20/13 07/21/23 calcium carbonate 500 mg PO DAILY 03/20/13 07/21/23 levothyroxine 125 mcg tablet 125 mcg PO Q OTHER DAY 03/20/13 07/21/23 levothyroxine 137 mcg tablet 137 mcg PO Q OTHER DAY 08/23/22 07/21/23 Allergies Allergy/AdvReac Type Severity Reaction Status Date / Time Exafjmo-LDM-[id number] Reductase Allergy Unknown Other (See Unverified 07/21/23 17:42 Inhibitor Comment) [Hjdubxm-Rec-Bnd Reductase Inhibitor] Sulfa (Sulfonamide Allergy Unknown Other (See Unverified 07/21/23 17:42 Antibiotics) Comment) General Stated Complaint: Abd Prob PHOEBE: 3 Review of Systems Narrative: see HPI Exam Const General: cooperative, healthy appearing, anxious and ill appearing (uncomfortable, in acute pain) Nutritional Appearance: average body habitus Resp Effort & Inspection: normal respiratory effort and able to speak in complete sentences Auscultation: clear to auscultation bilaterally Cardio Rate: regular rate Rhythm: regular rhythm GI Inspection: distended and no visible pulsation Palpation: soft, not firm, no pulsatile masses, not rigid and nontender Percussion: normal to percussion Auscultation: hyperactive bowel sounds Course Vital Signs Vital signs: Vital Signs Temperature 37.0 C 07/21/23 17:39 Pulse 77 07/21/23 17:39 Respiratory Rate 18 07/21/23 17:39 Blood Pressure 202/60 H 07/21/23 17:39 Pulse Oximetry 96 07/21/23 17:39 Temperature 37.0 C 07/21/23 17:39 Temperature Source Skin 07/21/23 17:39 Pulse 77 07/21/23 17:39 Respiratory Rate 18 07/21/23 17:39 Blood Pressure 202/60 H 07/21/23 17:39 Blood Pressure Position Sitting 07/21/23 17:39 Pulse Oximetry 96 07/21/23 17:39 Oxygen Delivery Method Room Air 07/21/23 17:39 Oxygen Flow Rate 0 07/21/23 17:39 Pain Level 10 07/21/23 17:39 Medical Decision Making Meenakshi is an 82-year-old female with history of HTN, hypothyroid, bowel obstruction who presents to the emergency department for evaluation of abdominal pain. She reports she has been constipated, not passing any stool for the last 4 days despite MiraLAX and Dulcolax use. Today around 1 PM she developed upper abdominal pain that she describes as severe cramping, like labor pains. Pain does not radiate. This is accompanied by nausea, no vomiting. She was passing gas until onset of pain. Denies history of abdominal surgery. Denies chest pain, shortness of breath, dysuria, change in urine output. She does get colonoscopies every 3 years due to polyps. Physical exam remarkable for markedly uncomfortable patient with distended abdomen. Abdomen is soft, nontender to palpation, with slightly hyperactive bowel sounds. No pulsatile mass. No obvious tympany on exam. Normal heart sounds. Easy work of breathing, lung sounds clear bilaterally. Moving all extremities normally, able to walk without difficulty. DDx includes but is not limited to bowel obstruction, neoplasm, constipation, fecal impaction, stercoral colitis, hepatitis, cholecystitis/cholelithiasis. No red flags concerning for mesenteric ischemia or AAA. I independently interpreted the following tests; EKG reassuring, normal sinus rhythm rate 72, normal MI interval and QTc. No changes consistent with acute ischemia. CBC, CMP, lactate, troponin all reassuring. Magnesium slightly elevated at 2.7. CT abdomen/pelvis reassuring, significant for multiple loops of nondilated, gas and fluid-filled mid and small bowel and proximal colon. Based on history and presentation, patient to be treated for uncomplicated constipation. Multiple enemas given, including soapsuds and milk and honey. Only small amount of stool passed at this time. Lactulose has been given. Dilaudid, acetaminophen and IV fluids given for discomfort as well. Handoff report given to Dr. Bailey. Quality:[facility] Health Related Social Needs: No Data to Display PFSH All Active Problems (Updated 08/23/22 @ 16:04 by Mercedez Burks DO) Obstipation (Acute) Dental infection (Acute) Transaminitis (Acute) Diverticula of colon (Acute) Fecal impaction of colon (Acute) Hypothyroid (Chronic) HTN (hypertension) (Chronic) Chronic GERD (Acute) Surgical History (Updated 08/22/22 @ 19:23 by Mercedez Burks DO) S/P cholecystectomy Social History Smoking/Tobacco Use Status: Former Tobacco Use Smoking risk assessment performed?: Yes Drug use: Never Substance use type: does not use Housing: house Sign Out Sign Out Data: Sign Out Comment: Meenakshi is an 82-year-old female who presents to the emergency department today for constipation x 4 days with generalized abdominal discomfort/distention. CT unremarkable. Labs all reassuring, only mild hypermagnesemia noted (2.7). She has received 3 soapsuds enemas and 1 milk and molasses enema, only scant firm stool removed at this time. Lactulose given. Patient okay to discharge once she has had a bowel movement. Last updated by Padma Olivas at 07/21/23 23:28
[2023-07-21] MEDS: MORPHine 10 MG/ML VIAL 2 MG IVP (18:11)
[2023-07-21] MEDS: Ondansetron 4 MG/2 ML VIAL IVP (18:12)
[2023-07-21 18:14] LABS: Abs Immature Grans 0.05 10^3/uL (0.0-0.06); Absolute Basophil Count 0.02 10^3/uL (0.0-0.2); Absolute Eosinophil Count 0.02 10^3/uL (0.0-0.7); Absolute Lymphocyte Count 0.73 10^3/uL (1.2-3.4); Basophils % 0.2; Eosinophils % 0.2; HGB 14.9 g/dL (11.2-15.7); Immature Grans % 0.4; Lactate 1.7 mmol/L (0.6-1.4); Lymphocytes % 6.4; MCH 35.7 pg (27.0-33.0); MCHC 34.7 % (32.0-36.0); MCV 103 fL (80-95); MPV 10.8 fL (8.0-11.0); Monocytes % 9.3; Neutrophils % 83.5; Platelet Count 203 10^3/uL (130-400); RBC 4.17 10^6/uL (3.93-5.22); RDW 12.1 % (11.7-14.6); RDW-SD 45.5 fL; WBC 11.34 10^3/uL (4.4-10.8)
[2023-07-21 18:16] LABS: Absolute Monocyte Count 1.05 10^3/uL (0.1-0.8); Absolute Neutrophil Count 9.47 10^3/uL (1.2-6.7)
[2023-07-21 18:36] LABS: ALT 25 U/L (14-59); AST 17 U/L (15-37); Albumin 3.5 g/dL (3.4-5.0); Alkaline Phosphatase 122 U/L (46-116); Anion Gap 11.8 mmol/L (3-11); BUN 10 mg/dL (7-18); Bilirubin, Total 0.7 mg/dL (0.2-1.0); CO2 29.2 mmol/L (21.0-32.0); CREATININE 0.8 mg/dL (0.55-1.02); Calcium 8.8 mg/dL (8.5-10.1); Chloride 101 mmol/L (98-107); Estimated GFR 74.44 (mL/min/1.73m2); Glucose 174 mg/dL (74-106); Magnesium 2.7 mg/dL (1.8-2.4); Potassium 3.5 mmol/L (3.5-5.1); Sodium 142 mmol/L (136-145); Total Protein 6.7 g/dL (6.4-8.2); Troponin I < 50 ng/L (< or =60)
[2023-07-21] MEDS: Normal Saline - Diluent 50 ML VIAL IJ (19:05)
[2023-07-21] MEDS: Omnipaque 350 MG/ML 100 ML BTL IJ (19:06)
[2023-07-21] MEDS: HYDROmorphone 2 MG/ML SYR 0.5 MG IVP (19:16)
--- NOTE | 2023-07-21 19:46 | DI.VRAD_ITS ---
PROCEDURE INFORMATION: Exam: CT Abdomen And Pelvis With Contrast Exam date and time: 07/21/2023 6:58 PM Age: 82 years old Clinical indication: Constipation; Abdominal pain; Additional info: Constipation x 4 days, h/o bowel obstructions TECHNIQUE: Imaging protocol: Computed tomography of the abdomen and pelvis with contrast. Contrast material: OMNI 350; Contrast volume: 100 ml; Contrast route: INTRAVENOUS (IV); COMPARISON: CT ABDOMEN PELVIS W 08/22/2022 6:21 PM FINDINGS: Diaphragm: Small-sized hiatal hernia. Liver: 3.5 cm peripherally hyperdense, centrally hypodense process within the medial segment left hepatic lobe, adjacent to the falciform ligament, likely hemangioma, unchanged. Mild hepatomegaly. Gallbladder and bile ducts: Normal. Pancreas: Normal. Spleen: Several small splenic hypodensities, too small to definitively characterize, similar to comparison study. Adrenal glands: Normal. No mass. Kidneys and ureters: Normal. Stomach and bowel: Colonic diverticulosis. Multiple loops of nondilated, gas and fluid-filled mid and distal small bowel and proximal colon, possibly enteritis/diarrhea. No evidence of bowel obstruction. Appendix: No evidence of appendicitis. Intraperitoneal space: Unremarkable. No free air. No significant fluid collection. Vasculature: Atherosclerotic disease visualized distal thoracic aorta. Atherosclerotic disease of the abdominal aorta and iliac arteries. Phleboliths within the pelvis. Lymph nodes: Unremarkable. No enlarged lymph nodes. Urinary bladder: Unremarkable as visualized. Reproductive: 2.7 x 1.7 cm cystic structure within the left upper pelvis, similar to comparison study, likely left ovarian cyst or peritoneal inclusion cyst. Bones/joints: No acute abnormality. Soft tissues: Normal. IMPRESSION: 1. Multiple loops of nondilated, gas and fluid-filled mid and distal small bowel and proximal colon, possibly enteritis/diarrhea. Findings similar to comparison study. 2. No evidence of significant constipation or bowel obstruction. Dictated and Authenticated by: Keshawn Hess MD. Ordering:MARIAN Rouse MD
[2023-07-21 21:19] LABS: Troponin I < 50 ng/L (< or =60)
[2023-07-21] MEDS: Lactulose 20 GM/30 ML CUP PO (21:25)
[2023-07-21] MEDS: ACETAMINOPHEN 1,000 MG/100 ML BTL 400 MG IVPB (21:28)
--- NOTE | 2023-07-21 21:55 | NUR.NOTE ---
2 soap suds enemas completed with minimal effect. PT was given milk and molasses enema. Waiting for results. Nursing Note:
--- NOTE | 2023-07-21 23:04 | NUR.NOTE ---
milk and molasses enema was not successful. Soap suds enema completed. waiting on results Nursing Note:
[2023-07-22] VITALS (11 sets, daily range): BP systolic 148–204; BP diastolic 53–78; PULSE 60–70; RESP 15–18; TEMP 36.3–37.8; O2SAT 92–97
--- NOTE | 2023-07-22 | DI.RAD_ITS ---
Exam(s) XR PORTABLE CHEST AP EXAM: XR PORTABLE CHEST AP CLINICAL HISTORY: ngt placement. TECHNIQUE: 2D digital imaging was performed. COMPARISON: No exams were available for comparison FINDINGS: Single AP portable view. Heart size is upper normal. The mediastinum is not widened. Lungs are clear. No infiltrates nor obvious pleural effusions. Distal tip of the NG tube is in the stomach just beyond the GE junction. Stomach appears collapsed IMPRESSION: No acute pulmonary findings on this single AP portable view of the chest. NG tube distal tip is in the stomach but should probably be advanced slightly further. DATA REPOSITORY: RADIATION DOSE DELIVERED:
--- NOTE | 2023-07-22 00:35 | NUR.NOTE ---
third enema did not improve PT. PT was ambulated in hallway. PT was able to make small BM. PT requested fleets enema. Nursing Note:
[2023-07-22] MEDS: Ketorolac 15 MG/ML VIAL IVP ×3 (00:44→20:25)
--- NOTE | 2023-07-22 00:45 | NUR.NOTE ---
PT had small BM after fleets enema. PT would like to try again Nursing Note:
[2023-07-22] MEDS: Bisacodyl 10 MG SUPP PR (02:01)
--- NOTE | 2023-07-22 03:16 | NUR.NOTE ---
PT had to urinate. PT had scant amount of stool come out. PT requested to speak with ED MD. Nursing Note:
[2023-07-22] MEDS: Pantoprazole 40 MG VIAL IVP ×2 (03:52→08:08)
[2023-07-22] MEDS: HYDROmorphone 2 MG/ML SYR 0.5 MG IVP ×2 (03:54→05:51)
--- NOTE | 2023-07-22 04:13 | ED.PROG_ITS ---
Date of service: 07/22/23 Time of Service: 04:14 Medical Decision Making The patient has had multiple enemas over the course of this shift without any significant resolution of her constipation. The patient had a bisacodyl suppository which did create some abdominal cramping, but was unsuccessful in the patient achieving a bowel movement beyond a small amount of stool. The patient was given some additional IV narcotic pain medication as she tells me that the Toradol and Ofirmev were unsuccessful in helping to improve her symptoms. Ultimately, I have discussed the case with the hospitalist to admit the patient for ongoing bowel cleanout as we were unsuccessful in achieving this over the arc of the shift. Quality:[facility] Health Related Social Needs: No Data to Display Sign Out Sign Out Data: Sign Out Comment: Meenakshi is an 82-year-old female who presents to the emergency department today for constipation x 4 days with generalized abdominal discomfort/distention. CT unremarkable. Labs all reassuring, only mild hypermagnesemia noted (2.7). She has received 3 soapsuds enemas and 1 milk and molasses enema, only scant firm stool removed at this time. Lactulose given. Patient okay to discharge once she has had a bowel movement. Last updated by Padma Olivas at 07/21/23 23:28 Discharge Plan Disposition Patient Disposition: Admit to [facility] Condition: Stable Discharge Details Chief Complaint: Abd Prob Clinical Impression: Abdominal pain, Constipation due to slow transit Primary Care Provider: Ravindra Ordoñez ED Provider: Josias Bailey Home Meds and New Rx's Prescriptions: No Action aspirin 325 MG tablet 81 mg PO DAILY Hold Instructions: Resume on 08/28/22. levothyroxine 125 MCG tablet 125 mcg PO Q OTHER DAY Rx Instructions: alternates with 137 mcg tab diltiazem HCl [Cardizem CD] 120 MG capsule,extended release 24hr 240 mg PO DAILY calcium carbonate 500 MG tablet,chewable 500 mg PO DAILY Hold Instructions: Resume on 08/28/22. atenolol 50 MG tablet 50 mg PO DAILY Hold Instructions: Resume on 08/28/22. Patient Comments: not taking levothyroxine 137 mcg tablet 137 mcg PO Q OTHER DAY Patient Comments: Take 1 tablet by mouth every other day as directed Take 1 tab by mouth alternating with Levothyroxine 125mcg every other day
--- NOTE | 2023-07-22 05:38 | HPE_ITS ---
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 Of note, the CT report say similar to 07/2022, and in that report the proximal colon is described as distended. Either way, the distention is not severe (defined as >12cm at cecum) and thus risk of perferation is low. - conservative management with NPO, upper GI decompression with NGT, antiemetics, IV fluids - surgical consult to help us follow - will give the enemas a break. Try positioning such as prone with knees to chest as she is able, ambulation - has been getting hydromorphine prn pain, try to limit opioids but I do want to treat her pain - I'm not sure if copious recent use of topical 5-FU could cause intestinal dysfunction, but hold off on this as well for now. (2) Hypothyroid: Status: Chronic Assessment and plan: continue levothyroxine when taking po. Get TSH to assure hypothyroidism not contributing to slow intestinal transit (3) HTN (hypertension): Status: Chronic Assessment and plan: BP high, she is in pain. Monitor. EKG reassuring as is troponin. She is on calcium channel therapy, which may increase risk for [place]'s. She states diltiazem was chosen because it helps her leg cramps. (4) Chronic GERD: Status: Acute Assessment and plan: give her PPI IV for now (5) DVT prophylaxis: Status: Acute Assessment and plan: Surgery is not imminent, so will use LMWH for now History of Present Illness History of Present Illness Chief Complaint: abdominal pain Narrative: 82 yo with history of hypothyroidism, HTN, colonic polyps, and previous admission for large intestinal pseudo-obstruciton in 07/2022 presenting with severe abdominal pain and bloating in the setting of no bowell movements for the past 4 days. The patient states she typically has a bowel movement daily, and takes PEG as needed with coffee if she needs it and this worked. For the past 4 days, she has been taking polyethylene glycol daily without a bowel movement. On , the day of her presentation to the emergency room, she took oral bisacodyl liquid along with polyethylene glycol. Hours later, at about 1 PM, she started having moderate to severe diffuse abdominal cramping pain. The pain was not improving and after discussing the case with her primary care triage team, she came down to the emergency room. Her entire belly feels sore and distended. She is quite nauseous and has not been able to eat or drink since the pain started. She has not had any fevers. At the point I evaluated her, she had been in the emergency room for almost 12 hours, had had received fleets, soapsuds, and milk of molasses enemas as well as Dulcolax suppositories, all without significant bowel movement. Of note, she was admitted in July 2022 with abdominal pain and distention after not being able to have a bowel movement for several days, and almost identical presentation to this episode. During that admission, impaction is mentioned in the notes, but there was no impaction on CT scan or documented exam. She did have a large bowel movement after getting Dulcolax suppositories and enemas and was sent home the next day. Also of note, she recently returned from a month or 2 in [place], which is her normal winter habit. She notes she has been using topical 5-FU on her many diffuse precancerous skin lesions frequently recently. She sees Dr. Jovita Yepez for regular colonoscopies due to colonic polyps. Per PCP note, it looks like her last colonoscopy was 2021, though I did not see the report. Interestingly, before 2021 she had chronic loose stools with a diagnisis of IBS-D. PFSH All Active Problems (Updated 07/22/23 @ 06:03 by Ramón Ayala) DVT prophylaxis (Acute) [place] syndrome (Acute) Constipation due to slow transit (Acute) Abdominal pain (Acute) Obstipation (Acute) Diverticula of colon (Acute) Fecal impaction of colon (Acute) Hypothyroid (Chronic) HTN (hypertension) (Chronic) Chronic GERD (Acute) Medical History (Updated 07/22/23 @ 06:03 by Ramón Ayala) Actinic keratoses Surgical History (Updated 07/22/23 @ 05:56 by Ramón Ayala) S/P thyroidectomy S/P cholecystectomy Social History (Updated 07/22/23 @ 05:55 by Ramón Ayala) Smoking/Tobacco Use Status: Former Tobacco Use Smoking risk assessment performed?: Yes Drug use: Never Substance use type: does not use Housing: house Additional Social history: 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 Lives in [place]. Meds Allergies and Home Medications Allergies Allergy/AdvReac Type Severity Reaction Status Date / Time Spmzust-[id number] Reductase Allergy Unknown Other (See Unverified 07/21/23 17:42 Inhibitor Comment) [Whhxcfs-Xvb-Tlk Reductase Inhibitor] Sulfa (Sulfonamide Allergy Unknown Other (See Unverified 07/21/23 17:42 Antibiotics) Comment) Home Medications Medication Instructions Recorded Confirmed Type Cardizem CD 120 mg 240 mg PO DAILY 03/20/13 07/21/23 History capsule,extended release (diltiazem HCl) aspirin 325 mg tablet 81 mg PO DAILY 03/20/13 07/21/23 History atenolol 50 mg tablet 50 mg PO DAILY 03/20/13 07/21/23 History calcium carbonate 500 mg PO DAILY 03/20/13 07/21/23 History levothyroxine 125 mcg tablet 125 mcg PO Q OTHER DAY 03/20/13 07/21/23 History levothyroxine 137 mcg tablet 137 mcg PO Q OTHER DAY 08/23/22 07/21/23 History Exam Narrative Exam Narrative: GEN: Alert and oriented x 4, pleasant and cooperative, gives linear history. Uncomfortable, but not toxic appearing HEENT: Head atraumatic. Conjunctiva clear, no icterus. PEERL, EOMI. no rhinorrhea. MM dry, OP benign without lesions. Neck is supple with no masses or lymphadenopathy, trachea midline LUNGS: CTAB with normal effort CV: RRR with no murmurs, gallops, or rubs. ABD: active BS in 4 quadrants, abdomen distended, tympanic, no fluid wave. Diffusely tender but no rebound or guarding. No masses. No HSM to percussion. EXT: no cyanosis, clubbing, or edema MSK: No joint redness or swelling NEURO: CN 2-12 grossly intact. Normal movement of 4 extremities. Normal speech and coordination SKIN: Diffuse dry tender plaques, some bruised, on sun exposed arms and legs. No open wounds. PSYCH: normal mood and affect, nl thought process Results Imaging Abdomen CT scan report/results: report reviewed (1. Multiple loops of nondilated, gas and fluid-filled mid and distal small bowel and proximal colon, possibly enteritis/diarrhea. Findings similar to comparison study 2. No evidence of significant constipation or bowel obstruction.) EKG: report reviewed and image reviewed (NSR, nl axis. No ischemic changes. ) Labs 07/21/23 18:07 07/21/23 18:07 Labs: Laboratory Results - last 24 hr 07/21/23 07/21/23 18:07 20:53 WBC 11.34 H RBC 4.17 Hgb 14.9 Hct 43.0 MCV 103 H MCH 35.7 H MCHC 34.7 RDW 12.1 Plt Count 203 MPV 10.8 Immature Gran % 0.4 Neutrophils % 83.5 Lymphocytes % 6.4 Monocytes % 9.3 Eosinophils % 0.2 Basophils % 0.2 Nucleated RBC % 0.0 Absolute Neutrophils 9.47 H Absolute Lymphocytes 0.73 L Absolute Monocytes 1.05 H Absolute Eosinophils 0.02 Absolute Basophils 0.02 VBG Lactate 1.7 H Sodium 142 Potassium 3.5 Chloride 101 Carbon Dioxide 29.2 Anion Gap 11.8 H BUN 10 Creatinine 0.8 Est GFR (CKD-EPI 2020) 74.44 Glucose 174 H Calcium 8.8 Magnesium 2.7 H Total Bilirubin 0.7 AST 17 ALT 25 Alkaline Phosphatase 122 H Troponin I < 50 < 50 Total Protein 6.7 Albumin 3.5 Last Vital Signs Temp 37.0 C 07/21/23 18:20 Pulse 63 07/22/23 04:33 Resp 18 07/22/23 04:33 BP 176/56 H 07/22/23 04:33 Pulse Ox 96 07/22/23 04:33 Time Spent Time spent with Patient: 55-74 minutes Time was spent: preparing to see the patient(eg.review tests), obtaining and/or reviewing separately otained hiistory, ordering medications,tests, procedures, referring, communicating with other health date night caregiver, indepentently interpreting results and counseling the patient
[2023-07-22 07:13] LABS: HCT 39.6 % (36.0-46.0); HGB 13.6 g/dL (11.2-15.7); MCH 35.4 pg (27.0-33.0); MCHC 34.3 % (32.0-36.0); MCV 103 fL (80-95); MPV 11.3 fL (8.0-11.0); Platelet Count 173 10^3/uL (130-400); RBC 3.84 10^6/uL (3.93-5.22); RDW-SD 45.2 fL; WBC 14.86 10^3/uL (4.4-10.8)
[2023-07-22 07:23] LABS: Anion Gap 8.3 mmol/L (3-11); BUN 12 mg/dL (7-18); CO2 27.7 mmol/L (21.0-32.0); CREATININE 0.7 mg/dL (0.55-1.02); Calcium 8.5 mg/dL (8.5-10.1); Chloride 102 mmol/L (98-107); Estimated GFR 87.37 (mL/min/1.73m2); Glucose 163 mg/dL (74-106); Potassium 3.7 mmol/L (3.5-5.1); Sodium 138 mmol/L (136-145)
[2023-07-22 07:38] LABS: Absolute Lymphocyte Count 0.89 10^3/uL (1.2-3.4); Absolute Monocyte Count 1.78 10^3/uL (0.1-0.8); Absolute Neutrophil Count 12.19 10^3/uL (1.2-6.7)
[2023-07-22 07:38] LABS: TSH (W/Ref FT4) 0.51 uIU/mL (0.36-3.74)
[2023-07-22 07:39] LABS: Diff Comment Manual Differential; RBC Morphology Normal
[2023-07-22] MEDS: Normal Saline Flush 10 ML SYR IVP ×4 (08:08→20:24)
[2023-07-22] MEDS: Normal Saline 10 ML VIAL IJ (08:08)
[2023-07-22] MEDS: POTASSIUM CHLORIDE/D5-0.45NACL 1,000 ML 100 MEQ IV (08:09)
--- NOTE | 2023-07-22 08:57 | PDOC.CMIN ---
Date of service: 07/22/23 Time of Service: 08:57 Care Management Initial Assmt Initial Assessment REASON FOR HOSPITALIZATION:: [place]'s syndrome PREVIOUS FUNCTIONAL STATUS/SOCIAL/FAMILY SUPPORTS:: Meenakshi lives in a single family home [address] in [place] with her significant other Syd. She has 3 children but none of them live close by. 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 She worked in many different settings including [employer] [facility], which is now [facility], [facility] and home health. She is independent at baseline and does not receive any community services. CURRENT FUNCTIONAL STATUS:: Meenakshi was sitting up in bed when CM met with her. She appeared much younger than her stated age and shared that her secret is Oil of Olay facial cream. Meenakshi was pleasant and cooperative and agreeable to conversation. She has an NG tube and complained of throat irritation from the tube. She had a surgical consult today and continuation of the current plan of care is recommended for the next 24 hours. She has an NG tube and is receiving non-opioid pain medicine, laxatives and enemas. ADVANCE DIRECTIVES:: states she has advanced directives but they are not on file at [facility] Has patient been provided with info about the portal/API?: No Did the patient sign up for the portal?: No CODE STATUS:: DNI INSURANCE COVERAGE / FINANCIAL ISSUES:: Medicare 3D FUTURE VISION II supplement PRIMARY CARE PHYSICIAN:: Ravindra Ordoñez POTENTIAL DISCHARGE NEEDS:: follow up with community providers PATIENT/FAMILY EDUCATION NEEDS:: review of discharge instructions, activity, limitations, diet, medications, follow up plan, discuss Ask me Three. TRANSPORTATION:: via private vehicle with family PLAN:: Anticipate Meenakshi will be discharged home with no new services when medically stable. She will follow up with her PCP and plan of care and transport with family. PFSH All Active Problems (Updated 07/22/23 @ 11:40 by Pastora Matute DO) DVT prophylaxis (Acute) Aida syndrome (Acute) Constipation due to slow transit (Acute) Abdominal pain (Acute) Obstipation (Acute) Diverticula of colon (Acute) Fecal impaction of colon (Acute) Hypothyroid (Chronic) HTN (hypertension) (Chronic) Chronic GERD (Acute) Medical History (Updated 07/22/23 @ 11:40 by Pastora Matute DO) Actinic keratoses Surgical History (Updated 07/22/23 @ 05:56 by Ramón Ayala) S/P thyroidectomy S/P cholecystectomy Social History (Updated 07/22/23 @ 05:55 by Ramón Ayala) Smoking/Tobacco Use Status: Former Tobacco Use Smoking risk assessment performed?: Yes Drug use: Never Substance use type: does not use Housing: house Additional 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 Lives in [place]. SDOH(Care Management) Screening Will the Patient Participate in the Screening?: Yes Do you worry about having a steady place to live?: no Problems where you live: no known problems In the past 12 months, have you had to go without electric, gas, oil or water in your home?: no Have you or anyone in your house had to go without enough food to eat?: no Has lack of transportation kept you from medical appointments or from doing things needed for daily living?: no Has anyone in your support network made you feel unsafe for any reason?: no
--- NOTE | 2023-07-22 09:22 | W.SURGCON ---
Date of service: 07/22/23 Time of Service: 09:00 Assessment and Plan Assessment and plan (1) Obstipation: Status: Acute Assessment and plan: At this time the patient does not have an acute surgical abdomen. She is hemodynamically stable. wbc is slightly elevated however she does not have fever or physical exam suspicious for acute surgical abdomen. -It was explained to the patient the signs and symptoms of an acute surgical abdomen. It was explained to her that if she were to develop this symptoms to alert nursing right away. It was explained to her that if these symptoms develop or the patient deteriorates that she would require immediate surgical intervention for the possibility of bowel ischemia or perforation. she indicated that she understood. -At this time we will continue with conservative therapy for a period of at least 24 hours. The patient has received the following conservative treatments already -NG tube decompression -Pain control with nonopiate medications -IV fluid resuscitation -Bowel cathartics and enemas -The patient was also asked to walk at least 3 times daily to help promote return of bowel function -We will do serial abdominal exams -Check abdominal x-ray in the morning -lactulose daily and Colace per rectum daily ordered -If conservative measures fail neostigmine IV may be a consideration -Endoscopic decompression is also a consideration -I will sign this patient out to the oncoming on-call surgeon, (2) Abdominal pain: Status: Acute Assessment and plan: see above -try to avoid opiates to assist with return of bowel function Qualifiers: Abdominal location: generalized Qualified Code(s): R10.84 - Generalized abdominal pain History of Present Illness History of Present Illness Chief Complaint: abdominal pain, constipation Narrative: This patient is an 82-year-old female patient is here with past medical history of obstipation, hypothyroidism, hypertension, GERD and diffuse squamous cell skin cell cancer. The patient presented to the emergency department yesterday with complaints of 2 weeks of progressively worsening constipation. The patient states that she spent the last 5 weeks in [place] however, she cut her vacation short and returned early due to constipation and abdominal pain. The patient states that she had been taking MiraLAX once daily when the constipation started. Her [place] bowel movement [place] 4 [place] She felt better at that time. However, the patient has not had any bowel movements in the past 4 days. She complains of increased abdominal distention, nausea and vomiting. In the emergency department the patient had a mildly elevated leukocytosis of 11,000. Repeat leukocytosis today is 14,000. Electrolytes and TSH were within normal range. CT scan of the abdomen pelvis demonstrated fluid-filled small and large intestine. Slightly dilated cecum and colon. No evidence of obstruction. No evidence of free air or free fluid. I personally reviewed the CT scan images. I do not feel this represents a true [place] Syndrome. Cecum mildy dilated and measures approximately 5 - 6 cm. In the emergency department the patient was treated for obstipation with IV fluid resuscitation. She was given 3 types of enemas including soapsuds enema, Fleet enema and mineral oil. She also received Dulcolax per rectum and 1 dose of lactulose. NG tube was inserted for decompression. On physical examination the patient was hemodynamically stable. She admitted to abdominal discomfort and distention. She also admitted to passing flatus. She has not responded to the treatments as of yet. Upon review of the medical records the patient had a similar presentation in July 2022. She quickly recovered with conservative therapy. She states her last colonoscopy was in 2021. Polyps were found. The patient denies any changes in her caliber of her stool or any blood in her stool. It was also noted upon review of the EMR and the patient confirms, that the patient had has been using 5-FU topical for her diffuse squamous cell skin cancer. She states that she had been using more than normal within the last few weeks. This could be a contributing factor to her obstipation. Review of Systems All systems reviewed & are unremarkable except as noted in HPI and below Gastrointestinal Gastrointestinal: Reports abdominal pain, Reports bloating, Reports constipation and Reports hematemesis PFSH All Active Problems (Updated 07/22/23 @ 11:40 by Pastora Matute DO) DVT prophylaxis (Acute) [place] syndrome (Acute) Constipation due to slow transit (Acute) Abdominal pain (Acute) Obstipation (Acute) Diverticula of colon (Acute) Fecal impaction of colon (Acute) Hypothyroid (Chronic) HTN (hypertension) (Chronic) Chronic GERD (Acute) Medical History (Updated 07/22/23 @ 11:40 by Pastora Matute DO) Actinic keratoses Surgical History (Updated 07/22/23 @ 05:56 by Ramón Ayala) S/P thyroidectomy S/P cholecystectomy Social History (Updated 07/22/23 @ 05:55 by Ramón Ayala) Smoking/Tobacco Use Status: Former Tobacco Use Smoking risk assessment performed?: Yes Drug use: Never Substance use type: does not use Housing: house Additional Social history: 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 Lives in [place]. Exam Const General: cooperative, healthy appearing and no acute distress Nutritional Appearance: average body habitus Eyes General: appearance normal, both eyes and all related structures Conjunctivae: conjunctivae normal Sclera: sclerae normal Chest Chest: normal inspection of the chest and rash (skin lesions consistent with squamous cell ca) Other: Diffuse lesions consistent with squamous cell CA Resp Effort & Inspection: normal respiratory effort and no respiratory distress Auscultation: clear to auscultation bilaterally Cardio Rate: regular rate Rhythm: regular rhythm Heart Sounds: S1 normal and S2 normal GI Inspection: distended and scar (consistent with previous open cholecystectomy) Palpation: tender Percussion: normal to percussion Other: occassional bowel sounds, distended, no rebound or percussion tenderness, generalize tenderness to palpation, skin lesions consistent with h/o diffuse squamous cell ca Rectal exam-on visual inspection there were no masses lesions or polyps around the anal os. The patient did have a small external hemorrhoid in the anterior midline. On digital examination there are no masses lesions or polyps palpated within the rectal vault. There is no evidence of stool impaction. There is no blood on gloved finger. Skin Lesions: lesion noted Other: skin lesions consistent with h/o diffuse squamous cell ca Extrem General: normal to inspection, no cyanosis and no edema Other: skin lesions consistent with h/o squamous cell ca noted Results Last Vital Signs Temp 97.3 F L 07/22/23 07:27 Pulse 60 07/22/23 07:27 Resp 18 07/22/23 07:27 BP 158/59 H 07/22/23 07:27 Pulse Ox 94 07/22/23 07:27 Labs 07/22/23 06:47 07/22/23 06:45 Labs: Laboratory Results - last 24 hr 07/21/23 07/21/23 07/22/23 18:07 20:53 06:45 WBC 11.34 H RBC 4.17 Hgb 14.9 Hct 43.0 MCV 103 H MCH 35.7 H MCHC 34.7 RDW 12.1 Plt Count 203 MPV 10.8 Immature Gran % 0.4 Neutrophils % 83.5 Lymphocytes % 6.4 Monocytes % 9.3 Eosinophils % 0.2 Basophils % 0.2 Nucleated RBC % 0.0 Absolute Neutrophils 9.47 H Absolute Lymphocytes 0.73 L Absolute Monocytes 1.05 H Absolute Eosinophils 0.02 Absolute Basophils 0.02 RBC Morphology VBG Lactate 1.7 H Sodium 142 138 Potassium 3.5 3.7 Chloride 101 102 Carbon Dioxide 29.2 27.7 Anion Gap 11.8 H 8.3 BUN 10 12 Creatinine 0.8 0.7 Est GFR (CKD-EPI 2020) 74.44 87.37 Glucose 174 H 163 H Calcium 8.8 8.5 Magnesium 2.7 H Total Bilirubin 0.7 AST 17 ALT 25 Alkaline Phosphatase 122 H Troponin I < 50 < 50 Total Protein 6.7 Albumin 3.5 TSH 0.51 04// 06:47 WBC 14.86 H RBC 3.84 L Hgb 13.6 Hct 39.6 MCV 103 H MCH 35.4 H MCHC 34.3 RDW 12.0 Plt Count 173 MPV 11.3 H Immature Gran % 0.0 Neutrophils % 82.0 Lymphocytes % 6.0 Monocytes % 12.0 Eosinophils % 0.0 Basophils % 0.0 Nucleated RBC % 0.0 Absolute Neutrophils 12.19 H Absolute Lymphocytes 0.89 L Absolute Monocytes 1.78 H Absolute Eosinophils 0.00 Absolute Basophils 0.00 RBC Morphology Normal VBG Lactate Sodium Potassium Chloride Carbon Dioxide Anion Gap BUN Creatinine Est GFR (CKD-EPI 2020) Glucose Calcium Magnesium Total Bilirubin AST ALT Alkaline Phosphatase Troponin I Total Protein Albumin TSH Imaging Chest x-ray: report reviewed and image reviewed Abdomen CT scan report/results: report reviewed and image reviewed (I personally reviewed the CT scan images. I do not feel this represents an [place] Syndrome. cecum mildy dilated. measures approximately 5 - 6 cm )
[2023-07-22] MEDS: ACETAMINOPHEN 1,000 MG/100 ML BTL 400 MG IVPB ×2 (10:36→18:05)
[2023-07-22] MEDS: Enoxaparin 40 MG/0.4 ML SYR SC (10:41)
--- NOTE | 2023-07-22 13:58 | PGE_ITS ---
Date of Service Date of service: 07/22/23 Time of Service: 13:58 Assessment and Plan Assessment and plan (1) Obstipation: Status: Acute Assessment and plan: as per plan outlined by Dr. Matute, continue decompression w/ NG, encourage patient to ambulate, continue lactulose, consider gastrograffin enema, consider protigmin; will repeat her labs this evening and continue serial abdominal exams; repeat abdominal xrays in the morning (sooner if getting increased pain or fever or labs become concerning for infection. avoid narcotic analgesics. Ok to use ketorolac and tylenol. (2) Abdominal pain: Status: Acute Assessment and plan: as above Qualifiers: Abdominal location: generalized Qualified Code(s): R10.84 - Generalized abdominal pain Subjective Subjective Interval history since last seen: See admission H&P and Dr. Matute' surgical consult note for details. Patient presented w/ abdominal bloating and pain. CT abdomen and pelvis consistent w/ fluid filled colon and small bowel w/ fluid filled distended colon from cecum to descening colon. Findings c/w pseudo obstruction. Patient now w/ NG draining bilious material. Exam Narrative Exam Narrative: Meenakshi is lying in her bed, she has an NG in place draining green bilious material Lungs: clear Heart: RRR Abdomen: distended, a few scattered hypoactive bowel sounds, no rebound tenderness or involuntary guarding Objective Last Vital Signs Temp 36.3 C L 07/22/23 07:27 Pulse 60 07/22/23 07:27 Resp 18 07/22/23 07:27 BP 158/59 H 07/22/23 07:27 Pulse Ox 94 07/22/23 07:27 Laboratory Results - last 24 hr 07/21/23 07/21/23 07/22/23 18:07 20:53 06:45 WBC 11.34 H RBC 4.17 Hgb 14.9 Hct 43.0 MCV 103 H MCH 35.7 H MCHC 34.7 RDW 12.1 Plt Count 203 MPV 10.8 Immature Gran % 0.4 Neutrophils % 83.5 Lymphocytes % 6.4 Monocytes % 9.3 Eosinophils % 0.2 Basophils % 0.2 Nucleated RBC % 0.0 Absolute Neutrophils 9.47 H Absolute Lymphocytes 0.73 L Absolute Monocytes 1.05 H Absolute Eosinophils 0.02 Absolute Basophils 0.02 RBC Morphology VBG Lactate 1.7 H Sodium 142 138 Potassium 3.5 3.7 Chloride 101 102 Carbon Dioxide 29.2 27.7 Anion Gap 11.8 H 8.3 BUN 10 12 Creatinine 0.8 0.7 Est GFR (CKD-EPI 2020) 74.44 87.37 Glucose 174 H 163 H Calcium 8.8 8.5 Magnesium 2.7 H Total Bilirubin 0.7 AST 17 ALT 25 Alkaline Phosphatase 122 H Troponin I < 50 < 50 Total Protein 6.7 Albumin 3.5 TSH 0.51 07/22/23 06:47 WBC 14.86 H RBC 3.84 L Hgb 13.6 Hct 39.6 MCV 103 H MCH 35.4 H MCHC 34.3 RDW 12.0 Plt Count 173 MPV 11.3 H Immature Gran % 0.0 Neutrophils % 82.0 Lymphocytes % 6.0 Monocytes % 12.0 Eosinophils % 0.0 Basophils % 0.0 Nucleated RBC % 0.0 Absolute Neutrophils 12.19 H Absolute Lymphocytes 0.89 L Absolute Monocytes 1.78 H Absolute Eosinophils 0.00 Absolute Basophils 0.00 RBC Morphology Normal VBG Lactate Sodium Potassium Chloride Carbon Dioxide Anion Gap BUN Creatinine Est GFR (CKD-EPI 2020) Glucose Calcium Magnesium Total Bilirubin AST ALT Alkaline Phosphatase Troponin I Total Protein Albumin TSH PAWSS Have you Been Recently Intoxicated or Drunk Within the Last 30 days?: No Have you Ever Experienced Previous Episodes of Alcohol Withdrawal?: No Have you ever Experienced Withdrawal Seizures?: No Have you ever Experienced Delirium Tremens(DT)s?: No Have you ever undergone Alcohol Rehabilitation Treatment (i.e, inpt ot outpatient treatment programs)?: No Have you ever Experienced Blackouts?: No Have you ever Combined Alcohol with other Downers within the last 90 days?: No Have you ever Combined Alcohol with any other Substance of Abuse during the last 90 days?: No Positive Blood Alcohol level on Presentation? [PCS.BAL]: No Evidence of Increased Autonomic Activity (i.e. HR>120, tremor, sweating, agitation, nausea)?: No Result: 0 Time Spent with Patient Time Spent with Patient: <25 minutes Time was spent: preparing to see the patient(eg.review tests), referring, communicating with other health care transition coordinator, indepentently interpreting results and care coordination
--- NOTE | 2023-07-22 14:10 | PHA.REVIEW2 ---
Pharmacy Admission Review Admission Clinical Review Admission Pharmacy Review: (Updated 07/22/23 @ 11:40 by Pastora Matute DO) DVT prophylaxis (Acute) Aida syndrome (Acute) Abdominal pain (Acute) Obstipation (Acute) Chronic GERD (Acute) Cpuzxgf-FVU-MgD Reductase Inhibitor [Aovhecq-Uen-Oug Reductase Inhibitor] Allergy (Unknown, Unverified 07/21/23 17:42) Other (See Comment) Sulfa (Sulfonamide Antibiotics) Allergy (Unknown, Unverified 07/21/23 17:42) Other (See Comment) Resuscitation Status DNI Height 5 ft 3 in Weight 68.039 kg Comments Comments/Follow Ups: Per surgery consult, no surgery needed at this time and continue to monitor patient for 24 hours. Pharmacy Admission Review Renal Dosing Renal Dosing: BUN 12 mg/dL (7-18) 07/22/23 06:45 Creatinine 0.7 mg/dL (0.55-1.02) 07/22/23 06:45 Medications needing adjustments: Reviewed (CrCl 41.55 mL/min) List of meds needing interventions: Current medications are okay Anticoagulation Anticoagulation: Hgb 13.6 g/dL (11.2-15.7) 07/22/23 06:47 Hct 39.6 % (36.0-46.0) 07/22/23 06:47 Plt Count 173 10^3/uL (130-400) 07/22/23 06:47 Creatinine 0.7 mg/dL (0.55-1.02) 07/22/23 06:45 DVT Prophylaxis: Reviewed Medications: Enoxaparin (40mg daily) Relevant Labs Relevant Labs: Sodium 138 mmol/L (136-145) 07/22/23 06:45 Potassium 3.7 mmol/L (3.5-5.1) 07/22/23 06:45 Chloride 102 mmol/L (98-107) 07/22/23 06:45 Magnesium 2.7 mg/dL (1.8-2.4) H 07/21/23 18:07 Electrolytes, C-Reactive P, ESR: Reviewed (WBC increased from 11.34 to 14.86, glucose 163 at 0645) Cardiac Review Cardiac Review: Troponin I < 50 ng/L (< or =60) 07/21/23 20:53 BP, HR, EF%: Reviewed (HR WNL, BP 158/59 - consistently elevated all day) QTc Review QTc: Reviewed (QTc 4452 from 07/21/23) IV to PO Switch IV Medications: Reviewed (Patient is NPO with NG tube) Home Meds Home Med List reviewed: Reviewed Relevent Home Meds Not ordered & why?: No orders for any home meds at this time. Patient is currently NPO with NG tube in place. Current Meds Current Medication Order Review: Reviewed Comments Comments/Follow Ups: Per surgery consult, no surgery needed at this time and continue to monitor patient for 24 hours.
[2023-07-22] MEDS: Ondansetron 4 MG/2 ML VIAL IVP (14:51)
--- NOTE | 2023-07-22 17:14 | NUR.NOTE ---
Nursing Note: pt c/o 10/05 cramping pain in ABD much of shift with little relief from scheduled tylenol and PRN toradol. NGT to LIS with about 500cc of green suction drainage. Encouraged ambulation. No BM this shift, pt states she is passing no flatus at this time, voiding well. IVF per MD order. makes needs known.
[2023-07-22 18:20] LABS: Abs Immature Grans 0.04 10^3/uL (0.0-0.06); Absolute Basophil Count 0.02 10^3/uL (0.0-0.2); Absolute Eosinophil Count 0.03 10^3/uL (0.0-0.7); Absolute Lymphocyte Count 0.56 10^3/uL (1.2-3.4); Absolute Monocyte Count 1.19 10^3/uL (0.1-0.8); Absolute Neutrophil Count 7.97 10^3/uL (1.2-6.7); Basophils % 0.2; Eosinophils % 0.3; HCT 40.2 % (36.0-46.0); HGB 13.8 g/dL (11.2-15.7); Immature Grans % 0.4; Lymphocytes % 5.7; MCHC 34.3 % (32.0-36.0); MCV 105 fL (80-95); MPV 11.3 fL (8.0-11.0); Monocytes % 12.1; Neutrophils % 81.3; Platelet Count 152 10^3/uL (130-400); RBC 3.83 10^6/uL (3.93-5.22); RDW 12.3 % (11.7-14.6); RDW-SD 47.8 fL; WBC 9.81 10^3/uL (4.4-10.8)
[2023-07-22 18:31] LABS: ALT 111 U/L (14-59); AST 101 U/L (15-37); Alkaline Phosphatase 181 U/L (46-116); BUN 13 mg/dL (7-18); Bilirubin, Total 1.1 mg/dL (0.2-1.0); CREATININE 0.7 mg/dL (0.55-1.02); Chloride 101 mmol/L (98-107); Estimated GFR 87.37 (mL/min/1.73m2); Glucose 132 mg/dL (74-106); Potassium 4.3 mmol/L (3.5-5.1); Sodium 138 mmol/L (136-145); Total Protein 5.9 g/dL (6.4-8.2)
[2023-07-22 19:02] LABS: Lactate 1.2 mmol/L (0.6-1.4)
--- NOTE | 2023-07-22 20:23 | W.PM.PROGNOT ---
Date of Service Date of service: 07/22/23 Time of Service: 17:15 Assessment and Plan Assessment and plan (1) Obstipation: Status: Acute Assessment and plan: patient hemodynmically stable without signs or symptomes of acute surgical abdomen. abdominal exam improved compared to previous exam. - bowel function has not returned yet with conservative therapies - ck barium enema study in am. it may be diagnostic and therapeutic Subjective Subjective Patient reports: no new complaints Interval history since last seen: patient has ambulated halls. still no bowel movements. pain is still present. bilious output from NGT Exam GI Other: softer compared to previous exam. generalized tenderness Objective Last Vital Signs Temp 100.0 F H 07/22/23 19:40 Pulse 70 07/22/23 19:40 Resp 18 07/22/23 19:40 BP 149/53 H 07/22/23 19:40 Pulse Ox 95 07/22/23 19:40 Laboratory Results - last 24 hr 07/21/23 07/22/23 07/22/23 20:53 06:45 06:47 WBC 14.86 H RBC 3.84 L Hgb 13.6 Hct 39.6 MCV 103 H MCH 35.4 H MCHC 34.3 RDW 12.0 Plt Count 173 MPV 11.3 H Immature Gran % 0.0 Neutrophils % 82.0 Lymphocytes % 6.0 Monocytes % 12.0 Eosinophils % 0.0 Basophils % 0.0 Nucleated RBC % 0.0 Absolute Neutrophils 12.19 H Absolute Lymphocytes 0.89 L Absolute Monocytes 1.78 H Absolute Eosinophils 0.00 Absolute Basophils 0.00 RBC Morphology Normal VBG Lactate Sodium 138 Potassium 3.7 Chloride 102 Carbon Dioxide 27.7 Anion Gap 8.3 BUN 12 Creatinine 0.7 Est GFR (CKD-EPI 2020) 87.37 Glucose 163 H Calcium 8.5 Total Bilirubin AST ALT Alkaline Phosphatase Troponin I < 50 Total Protein Albumin TSH 0.51 07/22/23 07/22/23 18:00 18:50 WBC 9.81 RBC 3.83 L Hgb 13.8 Hct 40.2 MCV 105 H MCH 36.0 H MCHC 34.3 RDW 12.3 Plt Count 152 MPV 11.3 H Immature Gran % 0.4 Neutrophils % 81.3 Lymphocytes % 5.7 Monocytes % 12.1 Eosinophils % 0.3 Basophils % 0.2 Nucleated RBC % 0.0 Absolute Neutrophils 7.97 H Absolute Lymphocytes 0.56 L Absolute Monocytes 1.19 H Absolute Eosinophils 0.03 Absolute Basophils 0.02 RBC Morphology VBG Lactate 1.2 Sodium 138 Potassium 4.3 Chloride 101 Carbon Dioxide 29.0 Anion Gap 8.0 BUN 13 Creatinine 0.7 Est GFR (CKD-EPI 2020) 87.37 Glucose 132 H Calcium 8.0 L Total Bilirubin 1.1 H AST 101 H ALT 111 H Alkaline Phosphatase 181 H Troponin I Total Protein 5.9 L Albumin 3.0 L TSH PAWSS Have you Been Recently Intoxicated or Drunk Within the Last 30 days?: No Have you Ever Experienced Previous Episodes of Alcohol Withdrawal?: No Have you ever Experienced Withdrawal Seizures?: No Have you ever Experienced Delirium Tremens(DT)s?: No Have you ever undergone Alcohol Rehabilitation Treatment (i.e, inpt ot outpatient treatment programs)?: No Have you ever Experienced Blackouts?: No Have you ever Combined Alcohol with other Downers within the last 90 days?: No Have you ever Combined Alcohol with any other Substance of Abuse during the last 90 days?: No Positive Blood Alcohol level on Presentation? [PCS.BAL]: No Evidence of Increased Autonomic Activity (i.e. HR>120, tremor, sweating, agitation, nausea)?: No Result: 0 Time Spent with Patient Time Spent with Patient: <25 minutes Time was spent: ordering medications,tests, procedures, referring, communicating with other health health care consultant and counseling the patient
[2023-07-22] MEDS: Prochlorperazine 10 MG/2 ML VIAL 5 MG IVP (20:25)
[2023-07-23 02:05] VITALS: BP 138/54; PULSE 81; RESP 20; TEMP 38.5; O2SAT 95
[2023-07-23] MEDS: ACETAMINOPHEN 1,000 MG/100 ML BTL 400 MG IVPB ×2 (02:07→10:34)
[2023-07-23] MEDS: Ketorolac 15 MG/ML VIAL IVP (02:08)
[2023-07-23] MEDS: Ondansetron 4 MG/2 ML VIAL IVP (02:08)
[2023-07-23] MEDS: POTASSIUM CHLORIDE/D5-0.45NACL 1,000 ML 100 MEQ IV (02:08)
[2023-07-23 06:00] VITALS: TEMP 38.2
[2023-07-23 07:17] VITALS: PULSE 100; RESP 16; TEMP 38; O2SAT 95
--- NOTE | 2023-07-23 08:04 | W.PM.PROGNOT ---
Date of Service Date of service: 07/23/23 Time of Service: 08:04 Assessment and Plan Assessment and plan (1) Obstipation: Status: Acute Assessment and plan: patient now having BM's, awaiting follow up KUB and upright xrays of abdomen, labs pending. urine for UA and urine culture and blood cultures ordered but have held off antibiotics as the fever may have been in response to the pseudoobstruction of her bowels and now she seems to be moving her bowels. Willl await blood and urine labs and abdominal xray. Will discuss w/ surgeon. consider trial of sips and chips this morning to see if she tolerates po intake. continue iv fluids for now until taking po well. (2) Abdominal pain: Status: Acute Assessment and plan: as above, can use Tylenol and ketorolac but avoid narcotics. Qualifiers: Abdominal location: generalized Qualified Code(s): R10.84 - Generalized abdominal pain Subjective Subjective Interval history since last seen: Patient spiked fever of 38.5 C last night around 2 am however, she began to have BM around 6 am and had large BM soft, not liquid. Abdomen is feeling better, distension has gone down. Nausea has improved. Exam Narrative Exam Narrative: Meenakshi is sitting up in her chair, NG still in place but now clamped Lungs: clear Heart: RRR Abdomen: still slight distension but much decreased and softer, no guarding or rebound tenderness, normal bowel sounds present Extremities: no edema or cyanosis, warm and dry Objective Last Vital Signs Temp 38.0 C H 07/23/23 07:17 Pulse 100 H 07/23/23 07:17 Resp 16 07/23/23 07:17 BP 138/54 L 07/23/23 02:05 Pulse Ox 95 07/23/23 07:17 Laboratory Results - last 24 hr 07/22/23 07/22/23 18:00 18:50 WBC 9.81 RBC 3.83 L Hgb 13.8 Hct 40.2 MCV 105 H MCH 36.0 H MCHC 34.3 RDW 12.3 Plt Count 152 MPV 11.3 H Immature Gran % 0.4 Neutrophils % 81.3 Lymphocytes % 5.7 Monocytes % 12.1 Eosinophils % 0.3 Basophils % 0.2 Nucleated RBC % 0.0 Absolute Neutrophils 7.97 H Absolute Lymphocytes 0.56 L Absolute Monocytes 1.19 H Absolute Eosinophils 0.03 Absolute Basophils 0.02 VBG Lactate 1.2 Sodium 138 Potassium 4.3 Chloride 101 Carbon Dioxide 29.0 Anion Gap 8.0 BUN 13 Creatinine 0.7 Est GFR (CKD-EPI 2020) 87.37 Glucose 132 H Calcium 8.0 L Total Bilirubin 1.1 H AST 101 H ALT 111 H Alkaline Phosphatase 181 H Total Protein 5.9 L Albumin 3.0 L PAWSS Have you Been Recently Intoxicated or Drunk Within the Last 30 days?: No Have you Ever Experienced Previous Episodes of Alcohol Withdrawal?: No Have you ever Experienced Withdrawal Seizures?: No Have you ever Experienced Delirium Tremens(DT)s?: No Have you ever undergone Alcohol Rehabilitation Treatment (i.e, inpt ot outpatient treatment programs)?: No Have you ever Experienced Blackouts?: No Have you ever Combined Alcohol with other Downers within the last 90 days?: No Have you ever Combined Alcohol with any other Substance of Abuse during the last 90 days?: No Positive Blood Alcohol level on Presentation? [PCS.BAL]: No Evidence of Increased Autonomic Activity (i.e. HR>120, tremor, sweating, agitation, nausea)?: No Result: 0 Time Spent with Patient Time Spent with Patient: 35-49 minutes Time was spent: preparing to see the patient(eg.review tests), ordering medications,tests, procedures, referring, communicating with other health aged or disabled carer, indepentently interpreting results, counseling the patient and care coordination
[2023-07-23 08:26] LABS: Absolute Lymphocyte Count 0.29 10^3/uL (1.2-3.4); Absolute Neutrophil Count 9.84 10^3/uL (1.2-6.7); Basophils % 0.2; HCT 40.4 % (36.0-46.0); HGB 14.1 g/dL (11.2-15.7); Immature Grans % 0.8; Lymphocytes % 2.3; MCHC 34.9 % (32.0-36.0); MCV 103 fL (80-95); MPV 11.7 fL (8.0-11.0); Monocytes % 18.8; Neutrophils % 77.9; Platelet Count 142 10^3/uL (130-400); RBC 3.92 10^6/uL (3.93-5.22); RDW 12.5 % (11.7-14.6); RDW-SD 47.7 fL; WBC 12.63 10^3/uL (4.4-10.8)
[2023-07-23 08:30] LABS: Absolute Basophil Count 0.03 10^3/uL (0.0-0.2); Absolute Monocyte Count 2.37 10^3/uL (0.1-0.8)
[2023-07-23 08:35] LABS: Diff Comment Diff Reviewed; RBC Morphology Normal
[2023-07-23 08:44] LABS: Bilirubin Moderate (Negative); Blood Negative (Negative); Clarity Sl Cloudy (Clear); Glucose Negative (Negative); Ketones Trace mg/dL (Negative); Leukocyte Esterase Negative (Negative); Nitrite Negative (Negative); Specific Gravity 1.025 (1.005-1.025); pH 5.5 (5-8)
[2023-07-23 08:47] LABS: ALT 80 U/L (14-59); AST 45 U/L (15-37); Albumin 2.9 g/dL (3.4-5.0); Alkaline Phosphatase 160 U/L (46-116); Anion Gap 10.5 mmol/L (3-11); BUN 21 mg/dL (7-18); Bilirubin, Total 1.5 mg/dL (0.2-1.0); CO2 24.5 mmol/L (21.0-32.0); CREATININE 0.9 mg/dL (0.55-1.02); Calcium 7.8 mg/dL (8.5-10.1); Chloride 101 mmol/L (98-107); Estimated GFR 64.63 (mL/min/1.73m2); Glucose 156 mg/dL (74-106); Potassium 4.2 mmol/L (3.5-5.1); Sodium 136 mmol/L (136-145); Total Protein 5.8 g/dL (6.4-8.2)
--- NOTE | 2023-07-23 09:10 | CMPROGNOTE_ITS ---
Date of service: 07/23/23 Time of Service: 09:10 Care Management Progress Note Progress Note Text Progress Note Text: S/O:Meenakshi was sitting up in a chair visiting with her partner Syd when CM met with her. She was pleasant and engaged easily with CM. Meenakshi informed CM that she is feeling much better and is hoping to be discharged later today. She has successfully moved her bowels and was sipping on clear fluids at the time of the visit which she stated she was tolerating well. She denied abdominal pain and nausea and stated that the NG tube will be removed if she is able to tolerate her diet. A: Meenakshi is an 82 year old woman admitted on 07/22/23 with constipation P:Anticipate Meenakshi will be discharged home with no new services when medically stable. She will follow up with her PCP and plan of care and transport with family. SDOH(Care Management) Screening Will the Patient Participate in the Screening?: Yes Do you worry about having a steady place to live?: no Problems where you live: no known problems In the past 12 months, have you had to go without electric, gas, oil or water in your home?: no Have you or anyone in your house had to go without enough food to eat?: no Has lack of transportation kept you from medical appointments or from doing thin gs needed for daily living?: no Has anyone in your support network made you feel unsafe for any reason?: no
[2023-07-23] MEDS: Normal Saline Flush 10 ML SYR IVP (09:17)
[2023-07-23] MEDS: Pantoprazole 40 MG VIAL IVP (09:18)
[2023-07-23] MEDS: Enoxaparin 40 MG/0.4 ML SYR SC (09:20)
--- NOTE | 2023-07-23 10:25 | DI.RAD_ITS ---
Exam(s) XR ABDOMEN FLAT UPRIGHT EXAM: 2D digital imaging was performed. CLINICAL HISTORY: obstipation. COMPARISON: CT CT ABDOMEN PELVIS W from 07/21/2023 TECHNIQUE: Supine and upright views of the abdomen was performed. Four images were obtained. FINDINGS: LUNG BASES: Clear. BOWEL GAS PATTERN: Nondistended. There is a small amount of retained stool in the distal colon and re ctum. FREE AIR: None. CALCIFICATIONS: No radiopaque calcifications. Vascular calcifications are present. OSSEOUS STRUCTURES: Age-appropriate degenerative changes are seen in the spine. There is an left con vex lumbar scoliosis. OTHER FINDINGS: The tip of the enteric tube is in good position in the stomach. IMPRESSION: Small amount of retained stool in the colon. DATA REPOSITORY: RADIATION DOSE DELIVERED:
[2023-07-23 11:14] VITALS: PULSE 96; RESP 16; TEMP 37.9; O2SAT 96
--- NOTE | 2023-07-23 12:10 | W.PM.PROGNOT ---
Date of Service Date of service: 07/23/23 Time of Service: 10:30 Assessment and Plan Assessment and plan (1) Transaminitis: Status: Resolved Exam Narrative Exam Narrative: Patient seen and examined on morning rounds today. Reportedly had two sizable BM's this morning prior to Flat & erect abdominal plain films being done. States that she feels much better. EXAM: GEN: non-toxic appearing. Pleasant, cooperative, and appropriate. HEENT: non-icteric, EOMI, neck supple. ABDOMEN: slightly protuberant, but soft, non-tender, BS are present, there is no guarding and no rebound. EXT: there is no calf pain. Objective Last Vital Signs Temp 100.2 F H 07/23/23 11:14 Pulse 96 H 07/23/23 11:14 Resp 16 07/23/23 11:14 BP 138/54 L 07/23/23 02:05 Pulse Ox 96 07/23/23 11:14 Laboratory Results - last 24 hr 07/22/23 07/22/23 07/23/23 18:00 18:50 08:10 WBC 9.81 12.63 H RBC 3.83 L 3.92 L Hgb 13.8 14.1 Hct 40.2 40.4 MCV 105 H 103 H MCH 36.0 H 36.0 H MCHC 34.3 34.9 RDW 12.3 12.5 Plt Count 152 142 MPV 11.3 H 11.7 H Immature Gran % 0.4 0.8 Neutrophils % 81.3 77.9 Lymphocytes % 5.7 2.3 Monocytes % 12.1 18.8 Eosinophils % 0.3 0.0 Basophils % 0.2 0.2 Nucleated RBC % 0.0 0.0 Absolute Neutrophils 7.97 H 9.84 H Absolute Lymphocytes 0.56 L 0.29 L Absolute Monocytes 1.19 H 2.37 H Absolute Eosinophils 0.03 0.00 Absolute Basophils 0.02 0.03 RBC Morphology Normal VBG Lactate 1.2 Sodium 138 136 Potassium 4.3 4.2 Chloride 101 101 Carbon Dioxide 29.0 24.5 Anion Gap 8.0 10.5 BUN 13 21 H Creatinine 0.7 0.9 Est GFR (CKD-EPI 2020) 87.37 64.63 Glucose 132 H 156 H Calcium 8.0 L 7.8 L Total Bilirubin 1.1 H 1.5 H AST 101 H 45 H ALT 111 H 80 H Alkaline Phosphatase 181 H 160 H Total Protein 5.9 L 5.8 L Albumin 3.0 L 2.9 L Urine Color Urine Clarity Urine pH Ur Specific [place] Urine Protein Urine Ketones Urine Blood Urine Nitrite Urine Bilirubin Urine Urobilinogen Ur Leukocyte Esterase Urine Glucose 07/23/23 08:32 WBC RBC Hgb Hct MCV MCH MCHC RDW Plt Count MPV Immature Gran % Neutrophils % Lymphocytes % Monocytes % Eosinophils % Basophils % Nucleated RBC % Absolute Neutrophils Absolute Lymphocytes Absolute Monocytes Absolute Eosinophils Absolute Basophils RBC Morphology VBG Lactate Sodium Potassium Chloride Carbon Dioxide Anion Gap BUN Creatinine Est GFR (CKD-EPI 2020) Glucose Calcium Total Bilirubin AST ALT Alkaline Phosphatase Total Protein Albumin Urine Color Belen Urine Clarity Sl Cloudy Urine pH 5.5 Ur Specific [place] 1.025 Urine Protein Negative Urine Ketones Trace H Urine Blood Negative Urine Nitrite Negative Urine Bilirubin Moderate H Urine Urobilinogen 1.0 H Ur Leukocyte Esterase Negative Urine Glucose Negative Objective Narrative Objective Narrative: (1) Resolving obstipation (2) Reviewed CT and today's Flat & Erect abdominal plain films with radiologist (3) Patient had colonoscopy 2021, had two large BM's this morning. Plain films show no obstruction. (4) Will cancelled BE ordered. (5) Place clamped NG to continuous suction for 30-60sec, if less than 200ml, will D/c NG and begin sips of warm tea. (6) If tea tolerated, will advance diet as tolerated. (7) Possible home tonight after dinner. PAWSS Have you Been Recently Intoxicated or Drunk Within the Last 30 days?: No Have you Ever Experienced Previous Episodes of Alcohol Withdrawal?: No Have you ever Experienced Withdrawal Seizures?: No Have you ever Experienced Delirium Tremens(DT)s?: No Have you ever undergone Alcohol Rehabilitation Treatment (i.e, inpt ot outpatient treatment programs)?: No Have you ever Experienced Blackouts?: No Have you ever Combined Alcohol with other Downers within the last 90 days?: No Have you ever Combined Alcohol with any other Substance of Abuse during the last 90 days?: No Positive Blood Alcohol level on Presentation? [PCS.BAL]: No Evidence of Increased Autonomic Activity (i.e. HR>120, tremor, sweating, agitation, nausea)?: No Result: 0 Time Spent with Patient Time Spent with Patient: <25 minutes Time was spent: preparing to see the patient(eg.review tests), ordering medications,tests, procedures and counseling the patient
[2023-07-23] MEDS: Chloraseptic Spray 117 ML BTL MM (12:57)
--- NOTE | 2023-07-23 13:18 | CHAPLAIN ---
Meenakshi was resting in bed when I visited. Her SO, Syd, was with her. Meenakshi said she's been exhausted and caught up on some sleep yesterday. They live in [place] and she hopes to be discharged later today. She and Syd were pleasant and thanked me for checking in.
[2023-07-23 15:50] VITALS: BP 109/66; PULSE 94; RESP 16; TEMP 36.2; O2SAT 96
--- NOTE | 2023-07-23 18:09 | W.PM.DS.N ---
Date of service: 07/23/23 Time of Service: 18:09 DS: Diagnosis Discharge Diagnosis (1) Obstipation: Status: Acute (2) Abdominal pain: Status: Acute Discharge Plan Disposition Patient Disposition: Home Condition: Improving Discharge Details Reason For Visit: Aida's syndrome (colonic pseudo-obstruction) Admit Date/Time: 07/22/23 05:24 Admit Provider: Ramón Ayala Attending Provider: Ramón Ayala Primary Care Provider: Ravindra Ordoñez [facility] Hospital Course: 82 yo with history of hypothyroidism, HTN, colonic polyps, and previous admission for large intestinal pseudo-obstruciton in 07/2022 presenting with severe abdominal pain and bloating in the setting of no bowell movements for the past 4 days. The patient states she typically has a bowel movement daily, and takes PEG as needed with coffee if she needs it and this worked. For the past 4 days, she has been taking polyethylene glycol daily without a bowel movement. On , the day of her presentation to the emergency room, she took oral bisacodyl liquid along with polyethylene glycol. Hours later, at about 1 PM, she started having moderate to severe diffuse abdominal cramping pain. The pain was not improving and after discussing the case with her primary care triage team, she came down to the emergency room. Her entire belly feels sore and distended. She is quite nauseous and has not been able to eat or drink since the pain started. She has not had any fevers. Evaluation in the ED included CT scan of the abdomen and pelvis which demonstrated the following: IMPRESSION: 1. Fluid-filled and slightly dilated colon from the cecum to the junction of the descending left and sigmoid colon as well as some fluid-filled upper normal limits diameter small bowel loops. Findings most probably consistent with enteritis, somewhat similar to the prior study of 08/22/2022. Less likely bowel obstruction. 2. Stable appearance of the probable hemangioma in the liver. 3. Gallbladder not seen and presumed to be surgically absent. 4. Other findings as above. Patient was admitted, made NPO and given NG placement for decompression of her stomach and UGI tract. She was put on iv fluids. Labs on admission were remarkable for WBC 14,800 , no anemia, although she has macrocytosis. CMP on admission showed no electrolyte or renal or hepatic abnormalities, Subsequent CBC showed her WBC to normalize overnight to 9800 but on the day of her discharge was mildly elevated at 12,600. Follow up CMP demosntrated mild elevation of her LFT w/ AST 101 > 45, ALT 111 > 80, and total bilirubine 1.5. Per CT showing: LIVER: Previously described probable hemangioma in the medial aspect of the right hepatic lobe adjacent to the inter lobar fissure is again noted and appears unchanged in size, measuring approximately 4 x 3 cm, similar to previous. There are no additional focal findings in the liver. There also no dilated intrahepatic ducts. Surgical consult was obtained. patient recieved multiple enemas, lactulose. When her pseudo obstruction did not resolved immediately, the general surgeon had set her up for contrast barium enema however on the morning of her discharge, she was passing copious amounts of stool and her abdominall distension resolved. her NG was removed and her diet was advanced. She tolerated a solid diet on the evening of her discharge. The patient was asking to return home. She says that she is unable to sleep in the hospital and she denies any abdominal pains or nausea. Since she was tolerating a solid diet, she was deemed medically acceptable for discharge home. 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 Specifically I told her to return is she has any fever, chills, return of abdominal pain or becomes constipated or if her diarrhea does not resolve. I advised her take metamucil twice a day which will help with her constipation and should help w/ her current diarrhea. I did advise her that her LFT remain mildly elevated and needs follow up w/ repeat labs next week. Home Meds and New Rx's Prescriptions: New Metamucil 3.4 gram/5.4 gram powder 1 tbsp PO BID Qty: 660 0RF Rx Instructions: mix into at least 8 oz of water or juice before administering Continued aspirin 325 MG tablet 81 mg PO DAILY Hold Instructions: Resume on 08/28/22. levothyroxine 125 MCG tablet 125 mcg PO Q OTHER DAY Rx Instructions: alternates with 137 mcg tab diltiazem HCl [Cardizem CD] 120 MG capsule,extended release 24hr 240 mg PO DAILY calcium carbonate 500 MG tablet,chewable 500 mg PO DAILY Hold Instructions: Resume on 08/28/22. atenolol 50 MG tablet 50 mg PO DAILY Hold Instructions: Resume on 08/28/22. Patient Comments: not taking levothyroxine 137 mcg tablet 137 mcg PO Q OTHER DAY Patient Comments: Take 1 tablet by mouth every other day as directed Take 1 tab by mouth alternating with Levothyroxine 125mcg every other day Discharge Instructions Instructions: Constipation (DC), High Fiber Diet (DC) Stand Alone Forms: Nursing Discharge Form Referrals: Ravindra Ordoñez [Primary Care Provider] - (Please make a follow up appointment for 1-2 weeks! ) Activity:: Activity as Tolerated Equipment/Supplies:: No Equipment Needed Diet:: Normal Diet Discharge Orders Discharge Orders: Discharge Order (Routine); Ordered 07/23/23 Ordered By: Jairon Quintero Other Ambulatory Orders: Complete Blood Count w/Diff (Routine) Timeframe: 3 Days Facility: [facility] - Location: Laboratory Outpatient - [facility] Ordered By: Jairon Quintero Comprehensive Metabolic Panel (Routine) Timeframe: 3 Days Facility: [facility] - Location: Laboratory Outpatient - [facility] Ordered By: Jairon Quintero DS: Summary Time Spent with Patient providing and/or coordinating discharge services: Less than 30 minutes Specific discharge activities: Interview/exam of patient; review of discharge instructions, completion of prescriptions/discharge instructions; discussion w/ nursing and CM; documentation of hospital visit Status at Discharge Functional status at discharge: independent ambulation Overall status at discharge: patient is progressing back to baseline Mental Status: mental status grossly normal Speech and Movement: speech and movement normal Mood: congruent mood Affect: normal affect Quality:SDOH Health Related Social Needs: No Data to Display Exam Narrative Exam Narrative: Meenakshi is sitting up in her chair, talking w/ her partner, she finished her supper and says that her abdomen feels fine. No nausea. She has been having diarrhea today but this after multiple doses of lactulose and enemas yesterday Abdomen: soft, nontender, normal bowel sounds, non-distended Psych Mental Status: mental status grossly normal Speech and Movement: speech and movement normal Mood: congruent mood Affect: normal affect DS: Data Vitals/I&O Vitals and I&O: Vital Signs Temperature 36.2 C L 07/23/23 15:50 Temperature Source Tympanic 07/23/23 15:50 Pulse 94 H 07/23/23 15:50 Pulse Rhythm Regular 07/23/23 09:00 Respiratory Rate 16 07/23/23 15:50 Respiratory Effort Normal, Non-Labored 07/23/23 09:00 Respiratory Depth Normal 07/23/23 09:00 Respiratory Pattern Normal 07/23/23 09:00 Blood Pressure 109/66 07/23/23 15:50 Blood Pressure Mean 108 07/22/23 00:43 Blood Pressure Position Sitting 07/21/23 18:20 Pulse Oximetry 96 07/23/23 15:50 Oxygen Delivery Method Room Air 07/23/23 15:50 Oxygen Flow Rate 0 07/23/23 15:50 Pain Level 0 07/23/23 15:50 Comment scheduled tylenol IV given 07/23/23 02:05 Intake & Output 07/22/23 07/23/23 07/23/23 23:59 11:59 23:59 Intake Total 1100 / 1210 200 / 1100 900 / 1100 Output Total 700 / 1100 700 / 700 Balance 400 / 110 -500 / 400 900 / 400 Intake: IV 1100 / 1210 200 / 800 600 / 800 Oral 300 / 300 Output: Gastric Drainage 500 / 800 550 / 550 Right Nare 500 / 800 550 / 550 Urine 200 / 300 150 / 150 Other: Urine Color Dark Belen Dark Belen Urine Appearance Clear Clear Urine Odor None Normal Stool Size Large Stool Characteristics Liquid Soft Brown Liquid Voiding Methods Bedside Commode Toilet Data Completed and Pending Labs on day of discharge: Labs from last 24 hours 07/23/23 07/23/23 07/22/23 08:32 08:10 18:50 WBC 12.63 H RBC 3.92 L Hgb 14.1 Hct 40.4 MCV 103 H MCH 36.0 H MCHC 34.9 RDW 12.5 Plt Count 142 MPV 11.7 H Immature Gran % 0.8 Neutrophils % 77.9 Lymphocytes % 2.3 Monocytes % 18.8 Eosinophils % 0.0 Basophils % 0.2 Nucleated RBC % 0.0 Absolute Neutrophils 9.84 H Absolute Lymphocytes 0.29 L Absolute Monocytes 2.37 H Absolute Eosinophils 0.00 Absolute Basophils 0.03 RBC Morphology Normal VBG Lactate 1.2 Sodium 136 Potassium 4.2 Chloride 101 Carbon Dioxide 24.5 Anion Gap 10.5 BUN 21 H Creatinine 0.9 Est GFR (CKD-EPI 2020) 64.63 Glucose 156 H Calcium 7.8 L Total Bilirubin 1.5 H AST 45 H ALT 80 H Alkaline Phosphatase 160 H Total Protein 5.8 L Albumin 2.9 L Urine Color Belen Urine Clarity Sl Cloudy Urine pH 5.5 Ur Specific [place] 1.025 Urine Protein Negative Urine Ketones Trace H Urine Blood Negative Urine Nitrite Negative Urine Bilirubin Moderate H Urine Urobilinogen 1.0 H Ur Leukocyte Esterase Negative Urine Glucose Negative 07/22/23 18:00 WBC 9.81 RBC 3.83 L Hgb 13.8 Hct 40.2 MCV 105 H MCH 36.0 H MCHC 34.3 RDW 12.3 Plt Count 152 MPV 11.3 H Immature Gran % 0.4 Neutrophils % 81.3 Lymphocytes % 5.7 Monocytes % 12.1 Eosinophils % 0.3 Basophils % 0.2 Nucleated RBC % 0.0 Absolute Neutrophils 7.97 H Absolute Lymphocytes 0.56 L Absolute Monocytes 1.19 H Absolute Eosinophils 0.03 Absolute Basophils 0.02 RBC Morphology VBG Lactate Sodium 138 Potassium 4.3 Chloride 101 Carbon Dioxide 29.0 Anion Gap 8.0 BUN 13 Creatinine 0.7 Est GFR (CKD-EPI 2020) 87.37 Glucose 132 H Calcium 8.0 L Total Bilirubin 1.1 H AST 101 H ALT 111 H Alkaline Phosphatase 181 H Total Protein 5.9 L Albumin 3.0 L Urine Color Urine Clarity Urine pH Ur Specific [place] Urine Protein Urine Ketones Urine Blood Urine Nitrite Urine Bilirubin Urine Urobilinogen Ur Leukocyte Esterase Urine Glucose 07/23/23 08:10 Blood Blood Culture - Pending 07/23/23 07:55 Blood Blood Culture - Pending Preliminary micro results at discharge 07/23/23 08:10 Blood Culture - Pending Blood 07/23/23 07:55 Blood Culture - Pending Blood PFSH All Active Problems Leukocytosis, unspecified (Acute) DVT prophylaxis (Acute) [place] syndrome (Acute) Constipation due to slow transit (Acute) Abdominal pain (Acute) Obstipation (Acute) Diverticula of colon (Acute) Fecal impaction of colon (Acute) Hypothyroid (Chronic) HTN (hypertension) (Chronic) Chronic GERD (Acute) Medical History Actinic keratoses Surgical History S/P thyroidectomy S/P cholecystectomy Social History Smoking/Tobacco Use Status: Former Tobacco Use Smoking risk assessment performed?: Yes Drug use: Never Substance use type: does not use Housing: house Additional Social history: 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 Lives in [place]. Time Spent with Patient Time Spent with Patient: <45 minutes Time was spent: preparing to see the patient(eg.review tests), ordering medications,tests, procedures, referring, communicating with other health rental boats caretaker, indepentently interpreting results, counseling the patient and care coordination
== END 2023-07-23 18:25 | disposition home or self-care (01) ==
LOC: ER 07-22 05:44 → MS 07-22 06:02
PROVIDERS: Internal Medicine; Nurse Practitioner Family; Surgery; Admitting Provider Family Medicine; Emergency Provider Emergency Medicine Emergency Medical Services; PCP Internal Medicine; Visit Provider Family Medicine
DX: K59.81 Ogilvie syndrome (principal); I10 Essential (primary) hypertension; K59.01 Slow transit constipation; R10.84 Generalized abdominal pain; D72.829 Elevated white blood cell count, unspecified; R74.01 Elevation of levels of liver transaminase levels; E89.0 Postprocedural hypothyroidism; K57.30 Diverticulosis of large intestine without perforation or abscess without bleeding
CPT/HCPCS: 00123; 36410; 36415; 80048; 80053; 85027; 87040; 93005; 96361; 96365; 96366; 96375; 96376; 99222; 99231; 99285; J1650; 71045; 74019; 74177; 81003; 83605; 83735; 84443; 84484; 85025; 93010; 99238; G0378; J0131; J0780; J1170; J1885; J2270; J2405; J2470; J3490

== ENCOUNTER 2023-07-26 18:12 | Outpatient (CLI) | payer MEDICARE, SELFPAY ==
[2023-07-26 13:40] LABS: Abs Immature Grans 0.07 10^3/uL (0.0-0.06); Absolute Basophil Count 0.03 10^3/uL (0.0-0.2); Absolute Eosinophil Count 0.03 10^3/uL (0.0-0.7); Absolute Lymphocyte Count 1.08 10^3/uL (1.2-3.4); Absolute Monocyte Count 0.73 10^3/uL (0.1-0.8); Basophils % 0.5; Eosinophils % 0.5; HCT 38.2 % (36.0-46.0); HGB 13.5 g/dL (11.2-15.7); Immature Grans % 1.2; Lymphocytes % 18.5; MCH 36.1 pg (27.0-33.0); MCHC 35.3 % (32.0-36.0); MCV 102 fL (80-95); Monocytes % 12.5; Neutrophils % 66.8; Platelet Count 169 10^3/uL (130-400); RBC 3.74 10^6/uL (3.93-5.22); RDW 11.9 % (11.7-14.6); RDW-SD 44.6 fL; WBC 5.84 10^3/uL (4.4-10.8)
[2023-07-26 14:15] LABS: ALT 43 U/L (14-59); AST 22 U/L (15-37); Albumin 3.2 g/dL (3.4-5.0); Alkaline Phosphatase 115 U/L (46-116); Anion Gap 8.1 mmol/L (3-11); BUN 6 mg/dL (7-18); Bilirubin, Total 0.5 mg/dL (0.2-1.0); CO2 27.9 mmol/L (21.0-32.0); CREATININE 0.7 mg/dL (0.55-1.02); Calcium 8.1 mg/dL (8.5-10.1); Chloride 103 mmol/L (98-107); Estimated GFR 87.37 (mL/min/1.73m2); Glucose 122 mg/dL (74-106); Potassium 3.5 mmol/L (3.5-5.1); Sodium 139 mmol/L (136-145); Total Protein 6.2 g/dL (6.4-8.2)
== END 2023-07-26 18:13 | disposition home or self-care (01) ==
LOC: LBO 18:12
PROVIDERS: PCP Internal Medicine; Visit Provider Internal Medicine
DX: R74.01 Elevation of levels of liver transaminase levels (principal); D72.829 Elevated white blood cell count, unspecified; K59.81 Ogilvie syndrome; K56.41 Fecal impaction
CPT/HCPCS: 36415; 80053; 85025

== ENCOUNTER → 2023-10-04 02:42 | Outpatient (CLI) | payer MEDICARE, SELFPAY ==
--- NOTE | 2023-10-04 | DI.MAMMO_ITS ---
Exam(s) MAMMO SCREENING EXAM: MAMMO SCREENING CLINICAL HISTORY: Screening, Z12.31 TECHNIQUE: Mammograms were interpreted according to the usual protocol including computer analysis w [employer] CAD system, tomosynthesis and C-view imaging. COMPARISON: 2017 through 2022 FINDINGS: The breasts are composed of scattered fibroglandular densities, Breast Density category B. No suspicious masses or suspicious microcalcifications are seen. Stable small bilateral nodules. No skin thickening or abnormal axillary lymph nodes are seen. There has been no significant change from prior exams. IMPRESSION: BI-RADS Category 2 - Benign Findings Yearly screening mammography is recommended. Breast Density - Category B, scattered fibroglandular densities. A negative radiographic report should not delay biopsy if a dominant or clinically suspicious mass is present. Up to ten percent of cancers are not identified on mammography. A negative report may reinforce clinical impression. Adenosis and dense breasts may obscure an underlying neoplasm. False positive reports average 6 to 10%. Patient will receive a letter notifying them of these results.
== END ==
PROVIDERS: PCP Internal Medicine; Visit Provider Internal Medicine
DX: Z12.31 Encounter for screening mammogram for malignant neoplasm of breast (principal); R92.323 Mammographic fibroglandular density, bilateral breasts
CPT/HCPCS: 77063; 77067

== ENCOUNTER 2023-12-24 01:06 | Outpatient (CLI) | payer MEDICARE, SELFPAY ==
--- NOTE | 2023-12-24 | DI.US_ITS ---
Exam(s) US CAROTID EXAM: US CAROTID CLINICAL HISTORY: I65.29 Occlusion and stenosis of unspecified carotid artery. TECHNIQUE: Ultrasound carotids performed using grayscale, color-flow, and spectral Doppler imaging. COMPARISON: US US CAROTID from 12/31/2022 FINDINGS: CAROTID ARTERIES: There is a large amount of plaque evident bilaterally at the level the carotid bulb s and proximal internal carotid arteries on both sides the neck. On the right side there is a peak s ystolic velocity of 207 cm/sec in the proximal right ICA indicating 50-69 percent stenosis. On the l eft side peak systolic velocities are less than 125 cm/sec indicating less than 50 percent stenosis. VERTEBRAL ARTERIES: Antegrade flow is demonstrated in both vertebral arteries in the neck Measurements: R Bulb: 43.6cm/s PS / 10.8cm/s ED R CCA: 60.8cm/s PS / 11.5cm/s ED R ECA: 241.7cm/s PS / 40.7cm/s ED R ICA Prox: 206.6cm/s PS / 36.2cm/s ED R ICA Mid: 147.3cm/s PS / 14.1cm/s ED R ICA Distal: 138.6cm/s PS /15.2cm/s ED R Vert: 66.1cm/s PS / 15.5cm/s ED R SVR: 3.4 R DVR: 3.1 L Bulb: 108.7cm/s PS / 15cm/s ED L CCA: 73.7cm/s PS / 14.1cm/s ED L ECA: 83.4cm/s PS / 6.2cm/s ED L ICA Prox: 84.7cm/s PS / 18.9cm/s ED L ICA Mid: 84.7cm/s PS / 18.9cm/s ED L ICA Distal: 83.3cm/s PS / 18.6cm/s ED L Vert: 58.1cm/s PS / 10.2cm/s ED L SVR: 1.5 L DVR: 1.1 IMPRESSION: There is prominent plaque bilaterally at the carotid bulbs and proximal internal carotid arteries. E levated velocity at the level the proximal right ICA indicates moderate 50-69 percent stenosis. Non elevated velocities on the left side indicate that the amount of stenosis is less than 50 percent . Antegrade flow is demonstrated in both vertebral arteries. Criteria for Carotid Stenosis: Normal: ICA PSV <125 cm/s no plaque or intimal thickening is visible. <50% stenosis: ICA PSV <125 cm/s and plaque or intimal thickening is visible. 50-69% stenosis: ICA PSV is 125-250 cm/s and plaque is visible. >70% stenosis to near occlusion: ICA PSV >250 cm/s with visible plaque and luminal narrowing. DATA REPOSITORY:
== END 2023-12-24 01:26 ==
PROVIDERS: PCP Internal Medicine; Visit Provider Internal Medicine
DX: I65.23 Occlusion and stenosis of bilateral carotid arteries (principal)
CPT/HCPCS: 93880

== ENCOUNTER 2024-01-13 16:39 | Outpatient (REF) | payer MEDICARE, SELFPAY ==
[2024-01-13 19:42] LABS: ALT 33 U/L (14-59); AST 20 U/L (15-37); Albumin 3.3 g/dL (3.4-5.0); Alkaline Phosphatase 95 U/L (46-116); Bilirubin, Direct 0.2 mg/dL (0.0-0.2); Bilirubin, Total 0.66 mg/dL (0.2-1.0); TSH 0.99 uIU/mL (0.36-3.74); Total Protein 6.3 g/dL (6.4-8.2)
[2024-01-17 09:14] LABS: Alpha 1 Antitrypsin,Serum 145 mg/dL (90-200)
== END 2024-01-13 16:40 | disposition home or self-care (01) ==
LOC: NCHCN 16:39
PROVIDERS: PCP Internal Medicine; Visit Provider Internal Medicine
DX: E89.0 Postprocedural hypothyroidism (principal); K75.81 Nonalcoholic steatohepatitis (NASH)
CPT/HCPCS: 80076; 82103; 84443

== ENCOUNTER 2024-07-10 16:39 | Outpatient (REF) | payer MEDICARE, SELFPAY ==
[2024-07-10 19:11] LABS: HCT 43.3 % (36.0-46.0); MCH 35.5 pg (27.0-33.0); MCHC 34.6 % (32.0-36.0); MCV 103 fL (80-95); MPV 11.7 fL (8.0-11.0); Platelet Count 159 10^3/uL (130-400); RBC 4.22 10^6/uL (3.93-5.22); RDW 12.2 % (11.7-14.6); RDW-SD 46.2 fL; WBC 4.42 10^3/uL (4.4-10.8)
[2024-07-10 19:12] LABS: ESR 8 mm/hr (0-30)
[2024-07-10 19:33] LABS: ALT 35 U/L (14-59); AST 25 U/L (15-37); Alkaline Phosphatase 115 U/L (46-116); Anion Gap 11.6 mmol/L (3-11); BUN 9 mg/dL (7-18); Bilirubin, Total 0.7 mg/dL (0.2-1.0); CO2 25.4 mmol/L (21.0-32.0); CREATININE 0.7 mg/dL (0.55-1.02); Calculated LDL 40 mg/dL (<100); Chloride 105 mmol/L (98-107); Cholesterol 127 mg/dL (<200); Estimated GFR 86.83 (mL/min/1.73m2); Glucose 116 mg/dL (74-106); HDL Cholesterol 60 mg/dL (>or=50); Potassium 3.6 mmol/L (3.5-5.1); Sodium 142 mmol/L (136-145); TSH 0.74 uIU/mL (0.36-3.74); Total Protein 6.7 g/dL (6.4-8.2); Triglyceride 135 mg/dL (<150)
[2024-07-10 20:23] LABS: C-Reactive Protein < 0.50 mg/dL (<or=0.5)
== END 2024-07-10 16:40 | disposition home or self-care (01) ==
LOC: NCHCN 16:39
PROVIDERS: PCP Internal Medicine; Visit Provider Internal Medicine
DX: E78.5 Hyperlipidemia, unspecified (principal); M46.1 Sacroiliitis, not elsewhere classified
CPT/HCPCS: 80053; 80061; 85027; 85652; 84443; 86140

== ENCOUNTER 2024-07-12 01:39 | Outpatient (CLI) | payer MEDICARE, SELFPAY ==
--- NOTE | 2024-07-12 | DI.RAD_ITS ---
Exam(s) XR SACROILIAC JOINTS EXAM: XR SACROILIAC JOINTS CLINICAL HISTORY: ARTHRITIS LT SI JOINT,M46.1,SUDDEN SEVERE LT SACROILEITIS,H/O HIGH GRADE. TECHNIQUE: 2D digital imaging was performed. COMPARISON: CR XR thoracolumb junct 2V from 03/02/2018 CR XR DEXA BONE DENSITY W/WO PATO from 05/15/2021 CR XR ABDOMEN FLAT UPRIGHT from 07/23/2023 FINDINGS: Bones: No fracture is present. No bony destructive lesion is seen. There are advanced degenerative c hanges at L5-S1. Hip joint spaces are maintained in showed mild periarticular spurring. Mild spurri ng is present at the pubic symphysis. SI Joints: The SI joints are not widened. No fusion, erosions or sclerosis is seen. There is mild s purring. Stable appearance from prior abdominal plain films. Soft Tissue: Normal. IMPRESSION: Mild degenerative changes of the SI joints and hips. No acute abnormality. DATA REPOSITORY: RADIATION DOSE DELIVERED:
== END 2024-07-12 01:59 ==
LOC: DI 01:39
PROVIDERS: PCP Internal Medicine; Visit Provider Family Medicine
DX: M46.1 Sacroiliitis, not elsewhere classified (principal); M16.0 Bilateral primary osteoarthritis of hip
CPT/HCPCS: 72202

== ENCOUNTER 2024-11-13 02:40 | Outpatient (CLI) | payer MEDICARE, SELFPAY ==
--- NOTE | 2024-11-13 | DI.MAMMO_ITS ---
Exam(s) MAMMO SCREENING EXAM: MAMMO SCREENING CLINICAL HISTORY: Z12.39 Screening. TECHNIQUE: Bilateral full field digital CC and MLO mammographic images were obtained with 3D tomosynthesis and utilizing computer aided detection (CAD). COMPARISON: Prior mammograms dating back to 2016were reviewed. FINDINGS: There is stable benign-appearing nodules in the right breast again noted. These have not increased in size since 2016. The more lateral the 2 has acquired a benign-appearing calcification since the mammogram of 2023. 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 No new right breast findings No new left breast findings. There are no new spiculated masses nor new malignant appearing microcalcification groups in either breast. There is no significant architectural distortion nor skin thickening-retraction. IMPRESSION: Stable benign findings. No radiographic evidence of malignancy. BI-RADS Category 2 - Benign Findings Breast Density - Category B - There are scattered areas of fibroglandular density. Breast density Category C or D implies that the patient has dense breast tissue. Dense breast tissue can make it harder to find cancer on a mammogram. Dense breast tissue is also associated with an increased risk of breast cancer. This information about the result of the mammogram report was provided to the patient to raise their awareness. Use this report when you speak with the patient about their risks for breast cancer, which includes their family history. At that time, you may recommend additional screening tests (Ultrasound or MRI) as these tests may add significant information. A negative radiographic report should not delay biopsy if a dominant or clinically suspicious mass is present. Up to ten percent of cancers are not identified on mammography. A negative report may reinforce clinical impression. Adenosis and dense breasts may obscure an underlying neoplasm. False positive reports average 6 to 10%. Patient will receive a letter notifying them of these results.
== END 2024-11-13 03:00 ==
PROVIDERS: PCP Internal Medicine; Visit Provider Internal Medicine
DX: Z12.31 Encounter for screening mammogram for malignant neoplasm of breast (principal); R92.323 Mammographic fibroglandular density, bilateral breasts
CPT/HCPCS: 77063; 77067